=== PATIENT | female | born 1955 | race Caucasian/White ===

== ENCOUNTER 2025-02-03 11:27 | Outpatient (AMB) | payer MEDICARE, SELFPAY ==
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
[2025-02-03 11:29] VITALS: BP 138/66; PULSE 82; RESP 16; O2SAT 98; BMI 29.6
== END 2025-02-03 12:15 | disposition home or self-care (01) ==
LOC: HO.PMC 11:28
PROVIDERS: PCP Family Medicine; Visit Provider Nurse Practitioner Family
DX: M54.50 Low back pain, unspecified (principal); G89.29 Other chronic pain; M47.817 Spondylosis without myelopathy or radiculopathy, lumbosacral region; M51.369 Other intervertebral disc degeneration, lumbar region without mention of lumbar back pain or lower extremity pain; M62.830 Muscle spasm of back; M41.86 Other forms of scoliosis, lumbar region
CPT/HCPCS: 99204

== ENCOUNTER 2025-02-03 11:27 | Outpatient (REF) | payer MEDICARE, SELFPAY ==
--- NOTE | ~2025-02-03 | XR_ITS ---
EXAMINATION: XR LUMBOSACRAL SPINE CLINICAL INFORMATION: M54.50 - Low back pain, unspecified COMPARISON: None available. TECHNIQUE: AP, obliques and lateral views FINDINGS: Limited examination due to patient's body habitus. Levoconvex rotoscoliosis at the thoracolumbar spine. Multilevel marginal osteophyte formation and endplate sclerosis and decreased intervertebral disc height pronounced at L5-S1. No acute cortical disruption. No gross malalignment. No lytic or blastic lesions. Vascular clips right upper quadrant abdomen. XR/XR lumbar spine 6V w bending IMPRESSION: Multilevel thoracolumbar spondylosis and levoconvex rotoscoliosis. Status post cholecystectomy. Electronically signed by: Tre Addison MD 02/03/2025 01:35 PM VALERI
--- OUTSIDE RECORDS SUMMARY | 2025-02-04 01:09 | XMS_ITS | Encounter Summary ---
Author Organization [facility] Address [address] [facility] [employer] [place] [address] Phone Care Team Providers Care Satellite Installation Technician Name Role Phone Carri Knight MD Unavailable [phone] Saad Brewster MD Unavailable [email or web address] Regino Stringer MD Unavailable [phone] Regino Stringer MD Primary Care Provider + [phone] Erma Flores Primary Care Provider [phone] Regino Stringer MD Primary Care Provider + [phone] Reanna Goldsmith MD Primary Care Provider [phone] Encounter Details Date Type Department Care Team (Late st Contact Info) Description 06/26/2020 Ancillary Orders Virtual Department [address] [place] [address] Faith Abbott MD [address] [address] [email or web address] Calculus of kidney Social History Tobacco Use Types Packs/Day Years Used Date Smoking Tobacco: Former Smokeless Tobacco: Never Comments:high school Alcohol Use Standard Drinks/Week Comments Yes 0 (1 standard drink = 0.6 oz pur e alcohol) 1x a month Comments Unknown Sex and Gender Information Value Date Recorded Sex Assigned at Female 04/06/2020 2:45 PM EST Legal Sex Female 7:03 PM EST Gender Identity Female 04/06/2020 2:45 PM EST Sexual Orientation Straight 06/14/2020 2: 15 PM EDT documented as of this encounter Plan of Treatment Upcoming Encounters Date Type Department Care Team (Late st Contact Info) Description 08/07/2025 2:40 PM EDT Office Visit [facility] [address] [facility] 3rd Floor, [address] [place] [address] Buddy Patel MD [address] [facility] [place] [address] documented as of this encounter Results * US Bladder (06/26/2020 12:19 PM EDT) Anatomical Region Laterality Modality Abdomen, Kidney Ultrasound 06/26/2020 1:01 PM EDT Impressions 06/26/2020 1:04 PM EDT No bladder pathology is apparent. Very small post-void residual. POS [id number] Narrative 06/26/2020 1:04 PM EDT No comparison No bladder wall thickening or focal filling defects. Prevoid volume 327 cc. Post void volume about 7 cc. No bladder calculi. Bilateral ureteral jets are visible. Procedure Note Christopher Gordon MD - 06/26/2020 No comparison No bladder wall thickening or focal filling defects. Prevoid volume 327 cc. Post void volume about 7 cc. No bladder calculi. Bilateral ureteral jets are visible. IMPRESSION: No bladder pathology is apparent. Very small post-void residual. POS [id number] us Faith Abbott MD IMG US RENAL Final Resu lt documented in this encounter Visit Diagnoses Diagnosis Calculus of kidney Calculus of kidney documented in this encounter Care Teams Satellite Installation Technician Relationship Specialty Start Date End Date Regino Stringer MD [address] [place] [address] [email or web address] PCP - General Internal Medicine 06/03/19 11/19/20 Erma Flores PA [address] [address] PCP - General Unknown Provider Specialty 11/20/20 04/18/21 Regino Stringer MD [address] [place] [address] PCP - General Internal Medicine 04/19/21 08/04/21 Reanna Goldsmith MD [address] [place] [address] PCP - General Family Medicine 08/05/21 Carri Knight MD [address] [place] [address] Historical LMR Provider 01/02/17 2 Saad Brewster MD [email or web address] Historical LMR Provider 01/02/17 Regino Stringer MD [address] [place] [address] [email or web address] Historical LMR Provider 01/02/17 2 documented as of this encounter Additional Source Comments The information contained in this document represents components of the legal health record. It is not the complete legal health record.[facility]
--- OUTSIDE RECORDS SUMMARY | 2025-02-04 01:09 | XMS_ITS | Encounter Summary ---
Author Organization [facility] Address [address] [place] [address] Phone Care Team Providers Care Pediatric Nephrologist Name Role Phone Carri Knight MD Unavailable [phone] Saad Brewster MD Unavailable [email or web address] Regino Stringer MD Unavailable [phone] Regino Stringer MD Primary Care Provider + [phone] Erma Flores Primary Care Provider [phone] Regino Stringer MD Primary Care Provider + [phone] Reanna Goldsmith MD Primary Care Provider [phone] Encounter Details Date Type Department Care Team (Late st Contact Info) Description 06/09/2020 Procedure Pass [facility], Ct Scan - [address] [address] Social History Tobacco Use Types Packs/Day Years [...] Description 08/07/2025 2:40 PM EDT Office Visit [facility] [address] [place] [address] 3rd Floor, [address] [place] [address] Buddy Patel MD [address] [place] [address] documented as of this encounter Visit Diagnoses Not on filedocumented in this encounter Care Teams Pediatric Nephrologist Relationship Specialty Start Date End Date Regino Stringer MD [address] [place] [address] PCP - General Internal Medicine 06/03/19 11/19/20 Erma Flores PA [address] [place] [address] PCP - General Unknown Provider Specialty 11/20/20 04/18/21 Regino Stringer MD [address] [place] [address] PCP - General Internal Medicine 04/19/21 08/04/21 Reanna Goldsmith MD [address] [place] [address] PCP - General Family Medicine 08/05/21 Carri Knight MD [address] [place] [address] Historical LMR Provider 01/02/17 2 Saad Brewster MD [email or web address] Historical LMR Provider 01/02/17 Regino Stringer MD [address] [place] [address] [email or web address] Historical LMR Provider 01/02/17 2 documented as of this encounter Additional Source Comments The information contained in this document represents components of the legal health record. It is not the complete legal health record.[facility]
--- OUTSIDE RECORDS SUMMARY | 2025-02-04 01:10 | XMS_ITS | Encounter Summary ---
Author Organization [facility] Address [address] [place] [address] Phone Care Team Providers Care Radio Reporter Name Role Phone Carri Knight MD Unavailable [phone] Saad Brewster MD Unavailable [email or web address] Regino Stringer MD Unavailable [phone] Regino Stringer MD Primary Care Provider + [phone] Erma Flores Primary Care Provider [phone] Regino Stringer MD Primary Care Provider + [phone] Reanna Goldsmith MD Primary Care Provider [phone] Encounter Details Date Type Department Care Team (Late st Contact Info) Description 06/17/2020 Procedure Pass [address] [place] [address] Social History Tobacco Use Types Packs/Day Years [...] Description 08/07/2025 2:40 PM EDT Office Visit [facility] [address] [place] [address] 3rd Floor, [address] [place] [address] Buddy Patel MD 22 [facility], [address] [address] [email or web address] documented as of this encounter Visit Diagnoses Not on filedocumented in this encounter Care Teams Radio Reporter Relationship Specialty Start Date End Date Regino Stringer MD [address] [place] [address] PCP - General Internal Medicine 06/03/19 11/19/20 Erma Flores PA [address] [place] [address] PCP - General Unknown Provider Specialty 11/20/20 04/18/21 Regino Stringer MD [address] [place] [address] PCP - General Internal Medicine 04/19/21 08/04/21 Reanna Goldsmith MD [address] [place] [address] PCP - General Family Medicine 08/05/21 Carri Knight MD [address] [place] [address] Historical LMR Provider 01/02/17 2 Saad Brewster MD [email or web address] Historical LMR Provider 01/02/17 Regino Stringer MD [address] [place] [address] [email or web address] Historical LMR Provider 01/02/17 2 documented as of this encounter Additional Source Comments The information contained in this document represents components of the legal health record. It is not the complete legal health record.[facility]
--- OUTSIDE RECORDS SUMMARY | 2025-02-04 01:11 | XMS_ITS | Encounter Summary ---
Author Organization [facility] Address [address] [facility] [address] [place] [address] Phone Care Team Providers Care Media Marketing Manager Name Role Phone Carri Knight MD Unavailable [phone] Saad Brewster MD Unavailable [email or web address] Regino Stringer MD Unavailable [phone] Johanna Ferrer Primary Care Provider Regino Stringer MD Primary Care Provider + [phone] Erma Flores Primary Care Provider [phone] Regino Stringer MD Primary Care Provider + [phone] Erma Flores Primary Care Provider [phone] Regino Stringer MD Primary Care Provider + [phone] Reanna Goldsmith MD Primary Care Provider [phone] Encounter Details Date Type Department Care Team (Late st Contact Info) Description 03/23/2017 Procedure Pass [facility] Admitting Dept Virtual Department [address] [place] [address] Social History Tobacco Use Types Packs/Day Years [...] Description 08/07/2025 2:40 PM EDT Office Visit [facility] [address] [place] [address] [address]rd Floor, [address] [place] [address] Buddy Patel MD [address] [place] [address], [address] [address] [email or web address] documented as of this encounter Visit Diagnoses Not on filedocumented in this encounter Care Teams Media Marketing Manager Relationship Specialty Start Date End Date Johanna Ferrer PA [address] [place] [address] PCP - General Unknown Provider Specialty 02/13/17 07/23/17 Regino Stringer MD [address] [place] [address] PCP - General Internal Medicine 07/24/17 10/03/18 Erma Flores PA [address] [place] [address] PCP - General Unknown Provider Specialty 10/04/18 06/02/19 Regino Stringer MD [address] [place] [address] PCP - General Internal Medicine 06/03/19 11/19/20 Erma Flores PA [address] [place] [address] [place] [address] PCP - General Unknown Provider Specialty 11/20/20 04/18/21 Regino Stringer MD [address] [place] [address] [email or web address] PCP - General Internal Medicine 04/19/21 08/04/21 Reanna Goldsmith MD [address] [address] [email or web address] PCP - General Family Medicine 08/05/21 Carri Knight MD [address] [place] [address] Historical LMR Provider 01/02/17 2 Saad Brewster MD [email or web address] Historical LMR Provider 01/02/17 Regino Stringer MD [address] [place] [address] [email or web address] Historical LMR Provider 01/02/17 2 documented as of this encounter Additional Source Comments The information contained in this document represents components of the legal health record. It is not the complete legal health record.[facility]
--- OUTSIDE RECORDS SUMMARY | 2025-02-04 01:12 | XMS_ITS | Encounter Summary ---
Author Organization [facility] Address [address] [place] [address] Phone Care Team Providers Care Cane Piler Name Role Phone Carri Knight MD Unavailable [phone] Saad Brewster MD Unavailable [email or web address] Regino Stringer MD Unavailable [phone] Johanna Ferrer Primary Care Provider Regino Stringer MD Primary Care Provider +- [phone] Erma Flores Primary Care Provider [phone] Regino Stringer MD Primary Care Provider + [phone] Erma Flores Primary Care Provider [phone] Regino Stringer MD Primary Care Provider + [phone] Reanna Goldsmith MD Primary Care Provider [phone] Encounter Details Date Type Department Care Team (Late st Contact Info) Description 04/06/2017 Ancillary Orders Virtual Department 30 [place] [address] Johanna Ferrer PA [address] [place] [address] Acquired hypothyroidism; History of malignant neoplasm of thyroid; Status post thyroidectomy Social History Tobacco Use Types Packs/Day Years [...] Description 08/07/2025 2:40 PM EDT Office Visit [facility] [address] [place] [address] 3rd Floor, [address] [place], [place] [id number] Buddy Patel MD 22 [facility], [address] [phone] [email or web address] documented as of this encounter Results * US Thyroid Gland (05/11/2017 1:30 PM EST) Anatomical Region Laterality Modality Neck, Head, Chest Ultrasound 05/11/2017 3:27 PM EST Impressions 05/11/2017 6:32 PM EST No suspicious lymphadenopathy. POS - [id number] Edited by: Rica Green on 05/11/2017 3:34 PM Narrative 05/11/2017 6:32 PM EST HISTORY: History of thyroid malignancy. Status post thyroidectomy. Lymphadenopathy. COMPARISON: Multiple prior most recent 05/06/2016 FINDINGS: On the right, there are three lymph nodes identified. The largest measures 1.0 x 0.5 x 0.2 cm in the mid neck and has hypoechoic elongated appearance as before. The other two lymph nodes are a subcentimeter in size in all three axes. Just right of midline in the upper neck, there is a lymph node measuring a subcentimeter in size in all three axes which has a normal echogenic fatty hilum. On the left, three lymph nodes are identified. The largest measures 1.3 x 0.7 x 0.4 cm in the lower neck and has a normal echogenic fatty hilum. This has stable appearance. The other lymph nodes are a subcentimeter in size in all three axes. Procedure Note Fredrick Stearns MD - 05/11/2017 HISTORY: History of thyroid malignancy. Status post thyroidectomy.Lymphadenopathy. COMPARISON: Multiple prior most recent 05/06/2016 FINDINGS: On the right, there are three lymph nodes identified. The largestmeasures 1.0 x 0.5 x 0.2 cm in the mid neck and has hypoechoic elongatedappearance as before. The other two lymph nodes are a subcentimeter insize in all three axes. Just right of midline in the upper neck, there is a lymph node measuring asubcentimeter in size in all three axes which has a normal echogenic fattyhilum. On the left, three lymph nodes are identified. The largest measures 1.3 x0.7 x 0.4 cm in the lower neck and has a normal echogenic fatty hilum.This has stable appearance. The other lymph nodes are a subcentimeter insize in all three axes. IMPRESSION: No suspicious lymphadenopathy. POS - [id number] Edited by: Rica Green on 05/11/2017 3:34 PM us Johanna SALEEM IMG US THYROID Final Result documented in this encounter Visit Diagnoses Diagnosis Acquired hypothyroidism Unspecified hypothyroidism History of malignant neoplasm of thyroid Personal history of malignant neoplasm of thyroid Status post thyroidectomy Other postprocedural status Acquired hypothyroidism Unspecified hypothyroidism History of malignant neoplasm of thyroid Personal history of malignant neoplasm of thyroid Status post thyroidectomy Other postprocedural status documented in this encounter Care Teams Cane Piler Relationship Specialty Start Date End Date Johanna Ferrer PA [address] [place] [address] PCP - General Unknown Provider Specialty 02/13/17 07/23/17 Regino Stringer MD [address] [place] [address] [email or web address] PCP - General Internal Medicine 07/24/17 10/03/18 Erma Flores PA [address] [place] [address] PCP - General Unknown Provider Specialty 10/04/18 06/02/19 Regino Stringer MD [address] [place] [address] [email or web address] PCP - General Internal Medicine 06/03/19 11/19/20 Erma Flores PA [address] [place] [address] PCP - General Unknown Provider Specialty 11/20/20 04/18/21 Regino Stringer MD [address] [place] [address] [email or web address] PCP - General Internal Medicine 04/19/21 08/04/21 Reanna Goldsmith MD [address] [place] [address] [email or web address] PCP - General Family Medicine 08/05/21 Carri Knight MD [address] [place] [address] Historical LMR Provider 01/02/17 2 Saad Brewster MD [email or web address] Historical LMR Provider 01/02/17 Regino Stringer MD [address] [place] [address] [email or web address] Historical LMR Provider 01/02/17 2 documented as of this encounter Additional Source Comments The information contained in this document represents components of the legal health record. It is not the complete legal health record.[facility]
--- OUTSIDE RECORDS SUMMARY | 2025-02-04 01:12 | XMS_ITS | Encounter Summary ---
Author Organization [facility] Address [address] [place] [address] Phone Care Team Providers Care Electronic System Engineer Name Role Phone Carri Knight MD Unavailable [phone] Saad Brewster MD Unavailable [email or web address] Regino Stringer MD Unavailable [phone] Johanna Ferrer Primary Care Provider Regino Stringer MD Primary Care Provider +- [phone] Erma Flores Primary Care Provider [phone] Regino Stringer MD Primary Care Provider + [phone] Erma Flores Primary Care Provider [phone] Regino Stringer MD Primary Care Provider + [phone] Reanna Goldsmith MD Primary Care Provider [phone] Encounter Details Date Type Department Care Team (Latest Contact Info) Description 04/06/2017 Ancillary Orders Virtual Department 30 [place] [address] Johanna Ferrer PA [address] [place] [address] Acquired hypothyroidism Social History Tobacco Use Types Packs/Day Years [...] Description 08/07/2025 2:40 PM EDT Office Visit [facility] [address] [place] [address] 3rd Floor, [address] [place] [address] Buddy Patel MD [address] [place] [address], [address] [address] [email or web address] documented as of this encounter Visit Diagnoses Diagnosis Acquired hypothyroidism Unspecified hypothyroidism documented in this encounter Care Teams Electronic System Engineer Relationship Specialty Start Date End Date Johanna Ferrer PA [address] [place] [address] PCP - General Unknown Provider Specialty 02/13/17 07/23/17 Regino Stringer MD [address] [place] [address] PCP - General Internal Medicine 07/24/17 10/03/18 Erma Flores PA [address] [place] [address] PCP - General Unknown Provider Specialty 10/04/18 06/02/19 Regino Stringer MD [address] [place] [address] PCP - General Internal Medicine 06/03/19 11/19/20 Erma Flores PA [address] [address] PCP - General Unknown Provider Specialty 11/20/20 04/18/21 Regino Stringer MD [address] [place] [address] [email or web address] PCP - General Internal Medicine 04/19/21 08/04/21 Reanna Goldsmith MD [address] [place] [address] [email or web address] PCP - General Family Medicine 08/05/21 Carri Knight MD [address] [place] [address] Historical LMR Provider 01/02/17 2 Saad Brewster MD [email or web address] Historical LMR Provider 01/02/17 Regino Stringer MD [address] [place] [address] [email or web address] Historical LMR Provider 01/02/17 2 documented as of this encounter Additional Source Comments The information contained in this document represents components of the legal health record. It is not the complete legal health record.[facility]
--- OUTSIDE RECORDS SUMMARY | 2025-02-04 01:13 | XMS_ITS | Encounter Summary ---
Author Organization [facility] Address [address] [place] [address] Phone Care Team Providers Care Ceo And Co Founder Name Role Phone Carri Knight MD Unavailable [phone] Saad Brewster MD Unavailable [email or web address] Regino Stringer MD Unavailable [phone] Regino Stringer MD Primary Care Provider + [phone] Erma Flores Primary Care Provider [phone] Regino Stringer MD Primary Care Provider + [phone] Reanna Goldsmith MD Primary Care Provider [phone] Reason for Referral * MRI/CAT Scan - Closed Specialty Diagnoses / Procedures Referred By Delvis shane Referred To Contact Radiology Diagnoses Solitary pulmonary nodule Procedures CT Chest CHG DIAGNOSTIC COMPUTED TOMOGRAPHY THORAX W/O CNTRST CHG DIAGNOSTIC COMPUTED TOMOGRAPHY THORAX W/CONTRAST CHG DIAGNOSTIC COMPUTED TOMOGRAPHY THORAX C-/C+ Erma Flores PA Phone: tel: fax: [address] Phone: tel: Referral ID Status Reason Start Date Expiration Date Visits Re quested Visits Authorized [id number] Closed 08/18/2020 09/17/2020 1 1 Encounter Details Date Type Department Care Team (Latest Contact Info) Description 06/09/2020 Transcribe Orders Virtual Department 30 [place] [address] Erma Flores PA [address] [address] Solitary pulmonary nodule (Primary Dx) Social History Tobacco Use Types Packs/Day Years [...] Description 08/07/2025 2:40 PM EDT Office Visit [facility] [address] [place] [address] 3rd Floor, [address] [place] [address] Buddy Patel MD [address] [address] documented as of this encounter Results * CT CHEST WITHOUT CONTRAST (08/18/2020 12:27 PM EDT) Anatomical Region Laterality Modality Chest Computed Tomogra phy 08/18/2020 12:2 8 PM EDT Impressions 08/18/2020 12:37 PM EDT Stable presumed postinflammatory pulmonary nodules measuring up to 6 mm in the left lower lobe without acute pleural-parenchymal pathology or other significant interval change from 06/03/2019 suggested on this non-contrast study. TOTAL CTDIvol: mGy POS - [id number] Narrative 08/18/2020 12:37 PM EDT COMPARISON: 06/03/2019 CT TECHNIQUE: CT chest without IV contrast. Multiplanar reformatted images generated. Automated exposure control utilized. FINDINGS: The dominant 6 mm diameter left lower lobe pulmonary nodule is stable in size as are multiple smaller scattered nodules bilaterally. No new or enlarging nodules are detected. Scattered zones of parenchymal scarring bilaterally are unchanged and no acute airspace infiltrate or pleural effusion have developed. No uriah bronchiectasis. No endotracheal or mainstem endobronchial nodules identified. There is limited evaluation the pulmonary bayron due to the lack of intravenous contrast but no grossly enlarged superior mediastinal lymph nodes or significant pericardial effusion have developed. Aortic caliber stable. No discrete supraclavicular mass or axillary lymphadenopathy are detected. There is chronic scoliosis and degenerative disc changes in the midthoracic spine with development of a small Schmorl's node in the T6 body but no traumatic or destructive lesions identified. Heterogeneous hepatic parenchymal density consistent with large chronic hemangioma again seen, without evidence of adrenal enlargement or other significant change in the visualized upper abdominal visceral structures. Procedure Note Hakeem Vinson MD - 08/18/2020 COMPARISON: 06/03/2019 CT TECHNIQUE: CT chest without IV contrast. Multiplanar reformatted imagesgenerated. Automated exposure control utilized. FINDINGS: The dominant 6 mm diameter left lower lobe pulmonary nodule is stable insize as are multiple smaller scattered nodules bilaterally. No new orenlarging nodules are detected. Scattered zones of parenchymal scarringbilaterally are unchanged and no acute airspace infiltrate or pleuraleffusion have developed. No uriah bronchiectasis. No endotracheal ormainstem endobronchial nodules identified. There is limited evaluation the pulmonary bayron due to the lack ofintravenous contrast but no grossly enlarged superior mediastinal lymphnodes or significant pericardial effusion have developed. Aortic caliberstable. No discrete supraclavicular mass or axillary lymphadenopathy aredetected. There is chronic scoliosis and degenerative disc changes in themidthoracic spine with development of a small Schmorl's node in the T6body but no traumatic or destructive lesions identified. Heterogeneoushepatic parenchymal density consistent with large chronic hemangioma againseen, without evidence of adrenal enlargement or other significant changein the visualized upper abdominal visceral structures. IMPRESSION: Stable presumed postinflammatory pulmonary nodules measuring up to 6 mm inthe left lower lobe without acute pleural-parenchymal pathology or othersignificant interval change from 06/03/2019 suggested on this non-contraststudy. TOTAL CTDIvol: mGy POS - [id number] Erma SALEEM IMG CT CHEST Final Resul t documented in this encounter Visit Diagnoses Diagnosis Solitary pulmonary nodule- Primary Solitary pulmonary nodule documented in this encounter Care Teams Ceo And Co Founder Relationship Specialty Start Date End Date Regino Stringer MD [address] [place] [address] [email or web address] PCP - General Internal Medicine 06/03/19 11/19/20 Erma Flores PA [address] [place] [address] PCP - General Unknown Provider Specialty 11/20/20 04/18/21 Regino Stringer MD [address] [place] [address] [email or web address] PCP - General Internal Medicine 04/19/21 08/04/21 Reanna Goldsmiht MD [address] [place] [address] [email or web address] PCP - General Family Medicine 08/05/21 Carri Knight MD [address] [place] [address] Historical LMR Provider 01/02/17 2 Saad Brewster MD [email or web address] Historical LMR Provider 01/02/17 Regino Stringer MD [address] [place] [address] [email or web address] Historical LMR Provider 01/02/17 2 documented as of this encounter Additional Source Comments The information contained in this document represents components of the legal health record. It is not the complete legal health record.[facility]
--- OUTSIDE RECORDS SUMMARY | 2025-02-04 01:13 | XMS_ITS | Encounter Summary ---
Author Organization [facility] Address [address] [place] [address] Phone Care Team Providers Care Undercover Agent Name Role Phone Carri Knight MD Unavailable [phone] Saad Brewster MD Unavailable [email or web address] Regino Stringer MD Unavailable [phone] Regino Stringer MD Primary Care Provider +- [phone] Erma Flores Primary Care Provider [phone] Regino Stringer MD Primary Care Provider + [phone] Reanna Goldsmith MD Primary Care Provider [phone] Reason for Referral * MRI/CAT Scan - Closed Specialty Diagnoses / Procedures Referred By Delvis shane Referred To Contact Radiology Diagnoses Sacroiliitis, not elsewhere classified Procedures MRI Pelvis (Bone) MRI Pelvis (GI/) Arash Douglas DO Phone: tel: fax: [email or web address] Referral ID Status Reason Start Date Expiration Date Visits Re quested Visits Authorized [id number] Closed 11/19/2020 11/19/2021 1 1 Encounter Details Date Type Department Care Team (Latest Contact Info) Description 11/19/2020 Transcribe Orders Virtual Department 30 [place] [address] Arash Douglas, DO [address] [place] [address] [email or web address] Sacroiliitis, not elsewhere classified (Primary Dx) Social History Tobacco Use Types [...] Description 08/07/2025 2:40 PM EDT Office Visit [facility] [address] [place] [address] 3rd Floor, [address] [place] [address] Buddy Patel MD [address] [place] [address], [address] [address] [email or web address] documented as of this encounter Results * MRI PELVIS (BONY FOCUS) WITHOUT CONTRAST (12/02/2020 2:13 PM EDT) Anatomical Region Laterality Modality Pelvis Magnetic Resonan ce 12/02/2020 2:52 PM EDT Impressions 12/02/2020 3:01 PM EDT 1.No significant SI joint abnormalities. 2.1.2 cm mass in the anterior aspect of the uterus, likely a fibroid. Narrative 12/02/2020 3:01 PM EDT MRI PELVIS (BONY FOCUS) WITHOUT CONTRAST HISTORY: Pain, evaluate for sacroiliitis. TECHNIQUE: Multi-sequence, multi-planar MRI of the pelvis without intravenous contrast. COMPARISON: None. FINDINGS: Study of the SI joints performed. SI joints: No suspicious signal abnormalities. No evidence of erosions. No evidence of widening or narrowing of the SI joints. Other bones: No suspicious marrow signal abnormalities. Soft tissues: No evidence of soft tissue masses or focal fluid collections. Intrapelvic: 1.2 cm mass within the anterior aspect of the uterus, dark on the axial STIR sequence and very likely a fibroid. No evidence of other pelvic masses. No marked bowel distention. Evidence of diverticula in the sigmoid colon. Procedure Note Brady Wallace MD - 12/02/2020 MRI PELVIS (BONY FOCUS) WITHOUT CONTRAST HISTORY: Pain, evaluate for sacroiliitis. TECHNIQUE: Multi-sequence, multi-planar MRI of the pelvis withoutintravenous contrast. COMPARISON: None. FINDINGS: Study of the SI joints performed. SI joints: No suspicious signal abnormalities. No evidence of erosions. Noevidence of widening or narrowing of the SI joints. Other bones: No suspicious marrow signal abnormalities. Soft tissues: No evidence of soft tissue masses or focal fluidcollections. Intrapelvic: 1.2 cm mass within the anterior aspect of the uterus, dark onthe axial STIR sequence and very likely a fibroid. No evidence of otherpelvic masses. No marked bowel distention. Evidence of diverticula in thesigmoid colon. IMPRESSION: 1.No significant SI joint abnormalities. 2.1.2 cm mass in the anterior aspect of the uterus, likely a fibroid. Arash Douglas DO [facility] MR PELVIS Final Result documented in this encounter Visit Diagnoses Diagnosis Sacroiliitis, not elsewhere classified- Primary Sacroiliitis, not elsewhere classified documented in this encounter Care Teams Undercover Agent Relationship Specialty Start Date End Date Regino Stringer MD [address] [place] [address] PCP - General Internal Medicine 06/03/19 11/19/20 Erma Flores PA [address] [address] PCP - General Unknown Provider Specialty 11/20/20 04/18/21 Regino Stringer MD [address] [place] [address] [email or web address] PCP - General Internal Medicine 04/19/21 08/04/21 Reanna Goldsmith MD [address] [address] [email or web address] PCP - General Family Medicine 08/05/21 Carri Knight MD [address] [place] [address] Historical LMR Provider 01/02/17 2 Saad Brewster MD [email or web address] Historical LMR Provider 01/02/17 Regino Stringer MD [address] [place] [address] [email or web address] Historical LMR Provider 01/02/17 2 documented as of this encounter Additional Source Comments The information contained in this document represents components of the legal health record. It is not the complete legal health record.[facility]
--- OUTSIDE RECORDS SUMMARY | 2025-02-04 01:14 | XMS_ITS | Encounter Summary ---
Author Organization [facility] Address [address] [place] [address] Phone Care Team Providers Care Director Of Product Marketing Name Role Phone Carri Knight MD Unavailable [phone] Saad Brewster MD Unavailable [email or web address] Regino Stringer MD Unavailable [phone] Regino Stringer MD Primary Care Provider + [phone] Erma Flores Primary Care Provider [phone] Regino Stringer MD Primary Care Provider + [phone] Reanna Goldsmith MD Primary Care Provider [phone] Encounter Details Date Type Department Care Team (Late st Contact Info) Description 04/09/2020 Procedure Pass [facility] [place] [place] [address] Social History Tobacco Use Types Packs/Day Years [...] Description 08/07/2025 2:40 PM EDT Office Visit [facility] [address] [place] [address] 3rd Floor, [address] [place] [address] Buddy Patel MD [address] [place] [address] [email or web address] documented as of this encounter Visit Diagnoses Not on filedocumented in this encounter Care Teams Director Of Product Marketing Relationship Specialty Start Date End Date Regino Stringer MD [address] [place] [address] [email or web address] PCP - General Internal Medicine 06/03/19 11/19/20 Erma Flores PA [address] [place] [address] PCP - General Unknown Provider Specialty 11/20/20 04/18/21 Regino Stringer MD [address] [place] [address] [email or web address] PCP - General Internal Medicine 04/19/21 08/04/21 Reanna Goldsmith MD [address] [place] [address] PCP - General Family Medicine 08/05/21 Carri Knight MD [address] [place] [address] Historical LMR Provider 01/02/17 2 Saad Brewster MD [email or web address] Historical LMR Provider 01/02/17 Regino Stringer MD [address] [place], [place] [id number] [email or web address] Historical LMR Provider 01/02/17 2 documented as of this encounter Additional Source Comments The information contained in this document represents components of the legal health record. It is not the complete legal health record.[facility]
--- OUTSIDE RECORDS SUMMARY | 2025-02-04 01:14 | XMS_ITS | Encounter Summary ---
Author Organization [facility] Address [address] [place] [address] Phone Care Team Providers Care Grizzlyman Name Role Phone Carri Knight MD Unavailable [phone] Saad Brewster MD Unavailable [email or web address] Regino Stringer MD Unavailable [phone] Regino Stringer MD Primary Care Provider + [phone] Erma Flores Primary Care Provider [phone] Regino Stringer MD Primary Care Provider + [phone] Reanna Goldsmith MD Primary Care Provider [phone] Encounter Details Date Type Department Care Team (Latest Contact Info) Description 05/04/2020 Transcribe Orders Virtual Department 30 [place] [address] Faith Abbott MD [address] [place] [address] [email or web address] Calculus of kidney (Primary Dx); Hemangioma of other sites Social History Tobacco Use Types Packs/Day Years [...] Description 08/07/2025 2:40 PM EDT Office Visit [facility] [address]rd Floor, [address] [place] [address] Buddy Patel MD [address] [facility], [address] [place] [address] [email or web address] documented as of this encounter Results * US Abdomen Complete (06/26/2020 12:19 PM EDT) Anatomical Region Laterality Modality Abdomen Ultrasound 06/26/2020 12:5 3 PM EDT Impressions 06/26/2020 1:01 PM EDT 1. Grossly stable hepatic hemangiomata. 2. Stable or decreasing small hyperechoic cortical lesion in the lower pole of the left kidney, likely angiomyolipoma. 3. No new or acute upper abdominal pathology. POS [id number] Narrative 06/26/2020 1:01 PM EDT Compare 05/20/2013 ultrasound and 06/20/2018 CT. FINDINGS: Known large right hepatic hemangioma grossly unchanged measuring about 14.2 x 9.9 x 14.6 cm today. Smaller left lobe lesions also grossly stable 1.9 x 1.8 x 2.2 cm and 1.2 x 1.1 x 1.8 cm. No new liver lesions are identified Cholecystectomy. No biliary dilatation. CBD 4 mm Hepatopedal flow in the main portal vein. Unremarkable pancreas. 4 x 4 x 3 mm circumscribed, hyperechoic cortical lesion in the lower pole left kidney stable or smaller than 2013, clearly benign. No other renal masses on either side. No stones or hydronephrosis. No splenomegaly or masses. Visualized upper aorta and IVC are unremarkable. Procedure Note Christopher Gordon MD - 06/26/2020 Compare 05/20/2013 ultrasound and 06/20/2018 CT. FINDINGS: Known large right hepatic hemangioma grossly unchanged measuring about14.2 x 9.9 x 14.6 cm today. Smaller left lobe lesions also grossly stable 1.9 x 1.8 x 2.2 cm and 1.2 x1.1 x 1.8 cm. No new liver lesions are identified Cholecystectomy. No biliary dilatation. CBD 4 mm Hepatopedal flow in the main portal vein. Unremarkable pancreas. 4 x 4 x 3 mm circumscribed, hyperechoic cortical lesion in the lower poleleft kidney stable or smaller than 2014, clearly benign. No other renalmasses on either side. No stones or hydronephrosis. No splenomegaly or masses. Visualized upper aorta and IVC are unremarkable. IMPRESSION: 1. Grossly stable hepatic hemangiomata. 2. Stable or decreasing small hyperechoic cortical lesion in the lowerpole of the left kidney, likely angiomyolipoma. 3. No new or acute upper abdominal pathology. POS [id number] us Faith Abbott MD IMG US ABDOMEN Final Resu lt documented in this encounter Visit Diagnoses Diagnosis Calculus of kidney- Primary Hemangioma of other sites Hemangioma of other sites documented in this encounter Care Teams Grizzlyman Relationship Specialty Start Date End Date Regino Stringer MD [address] [place] [address] PCP - General Internal Medicine 06/03/19 11/19/20 Erma Flores PA [address] [place] [address] PCP - General Unknown Provider Specialty 11/20/20 04/18/21 Regino Stringer MD [address] [place] [address] [email or web address] PCP - General Internal Medicine 04/19/21 08/04/21 Reanna Goldsmith MD [address] [place] [address] PCP - General Family Medicine 08/05/21 Carri Knight MD [address] [place] [address] Historical LMR Provider 01/02/17 2 Saad Brewster MD [email or web address] Historical LMR Provider 01/02/17 Regino Stringer MD [address] [place] [address] [email or web address] Historical LMR Provider 01/02/17 2 documented as of this encounter Additional Source Comments The information contained in this document represents components of the legal health record. It is not the complete legal health record.[facility]
--- OUTSIDE RECORDS SUMMARY | 2025-02-04 01:15 | XMS_ITS | Encounter Summary ---
Author Organization [facility] Address [address] [place] [address] Phone Care Team Providers Care Restuarant Crew Worker Name Role Phone Carri Knight MD Unavailable [phone] Saad Brewster MD Unavailable [email or web address] Regino Stringer MD Unavailable [phone] Regino Stringer MD Primary Care Provider [phone] Erma Flores Primary Care Provider [phone] Regino Stringer MD Primary Care Provider + [phone] Reanna Goldsmith MD Primary Care Provider [phone] Encounter Details Date Type Department Care Team (Late st Contact Info) Description 06/03/2019 Ancillary Orders Virtual Department 30 [place] [address] Steven Serrano MD [address] [place] [address] Personal history of malignant neoplasm of thyroid Social History Tobacco Use Types Packs/Day Years [...] Description 08/07/2025 2:40 PM EDT Office Visit [facility] [address] [place] [address] 3rd Floor, [address] [place] [address] Buddy Patel MD [address] [facility], [address] [place] [address] [email or web address] documented as of this encounter Results * US Soft Tissues of Head and Neck (Lymph Node Survey) (06/03/2019 1:26 PM EDT) Anatomical Region Laterality Modality Neck, Head Ultrasound 06/03/2019 1:47 PM EDT Impressions 06/03/2019 2:08 PM EDT Bilateral subcentimeter cervical lymph nodes with no morphologically abnormal-appearing lymph nodes seen. POS: [id number] Narrative 06/03/2019 2:08 PM EDT US SOFT TISSUES OF HEAD AND NECK (LYMPH NODE SURVEY) CLINICAL INDICATION: HISTORY OF MALIGNANT NEOPLASM OF THYROID, ASSESS FOR CONCERNING ADENOPATHY, H/O THYROID CANCER TECHNIQUE: Grayscale imaging of the neck for evaluation of lymph nodes was performed. COMPARISON: Similar studies dated 05/11/2017, 05/06/2016, 05/09/2014 and 04/04/2013. FINDINGS: On the right, 2 lymph nodes are identified, the largest is located medially in the mid neck measuring 0.8 x 0.2 x 0.9 cm. On the left, 3 lymph nodes are noted, the largest of which is located superiorly measuring 0.9 x 0.4 x 0.7 cm. This demonstrates preserved echogenic hilum. The thyroid bed was not demonstrated. Procedure Note Mary Quiroz MD - 06/03/2019 US SOFT TISSUES OF HEAD AND NECK (LYMPH NODE SURVEY) CLINICAL INDICATION: HISTORY OF MALIGNANT NEOPLASM OF THYROID, ASSESS FORCONCERNING ADENOPATHY, H/O THYROID CANCER TECHNIQUE: Grayscale imaging of the neck for evaluation of lymph nodes wasperformed. COMPARISON: Similar studies dated 05/11/2017, 05/06/2016, 05/09/2014 and04/04/2013. FINDINGS: On the right, 2 lymph nodes are identified, the largest is locatedmedially in the mid neck measuring 0.8 x 0.2 x 0.9 cm. On the left, 3 lymph nodes are noted, the largest of which is locatedsuperiorly measuring 0.9 x 0.4 x 0.7 cm. This demonstrates preservedechogenic hilum. The thyroid bed was not demonstrated. IMPRESSION: Bilateral subcentimeter cervical lymph nodes with no morphologicallyabnormal-appearing lymph nodes seen. POS: [id number] us Steven Serrano MD IMG US HEAD/NECK NON THYROI D Final Result documented in this encounter Visit Diagnoses Diagnosis Personal history of malignant neoplasm of thyroid Personal history of malignant neoplasm of thyroid documented in this encounter Care Teams Restuarant Crew Worker Relationship Specialty Start Date End Date Regino Stringer MD [address] [place] [address] PCP - General Internal Medicine 06/03/19 11/19/20 Erma Flores PA [address] [place] [address] PCP - General Unknown Provider Specialty 11/20/20 04/18/21 Regino Stringer MD [address] [place] [address] PCP - General Internal Medicine 04/19/21 08/04/21 Reanna Goldsmith MD [address] [place] [address] [email or web address] PCP - General Family Medicine 08/05/21 Carri Knight MD [address] [place] [address] Historical LMR Provider 01/02/17 2 Saad Brewster MD [email or web address] Historical LMR Provider 01/02/17 Regino Stringer MD [address] [place] [address] [email or web address] Historical LMR Provider 01/02/17 2 documented as of this encounter Additional Source Comments The information contained in this document represents components of the legal health record. It is not the complete legal health record.[facility]
--- OUTSIDE RECORDS SUMMARY | 2025-02-04 01:16 | XMS_ITS | Encounter Summary ---
Author Organization [facility] Address [address] [facility] [address] [place] [address] Phone Care Team Providers Care Drywall Carrier Name Role Phone Carri Knight MD Unavailable [phone] Saad Brewster MD Unavailable [email or web address] Regino Stringer MD Unavailable [phone] Erma Flores Primary Care Provider [phone] Regino Stringer MD Primary Care Provider + [phone] Erma Flores Primary Care Provider [phone] Regino Stringer MD Primary Care Provider + [phone] Reanna Goldsmith MD Primary Care Provider [phone] Encounter Details Date Type Department Care Team (Latest Contact Info) Description 04/23/2019 Transcribe Orders Virtual Department 30 [place] [address] Steven Serrano MD [address] [place] [address] [email or web address] Personal history of malignant neoplasm of thyroid (Primary Dx) Social History Tobacco Use Types [...] Description 08/07/2025 2:40 PM EDT Office Visit [facility] [address] [place] [address] 3rd Floor, [address] [place] [address] Buddy Patel MD [address] [place] [address], [address] [address] [email or web address] documented as of this encounter Visit Diagnoses Diagnosis Personal history of malignant neoplasm of thyroid- Primary documented in this encounter Care Teams Drywall Carrier Relationship Specialty Start Date End Date Erma Flores PA [address] [place] [address] PCP - General Unknown Provider Specialty 10/04/18 06/02/19 Regino Stringer MD [address] [place] [address] PCP - General Internal Medicine 06/03/19 11/19/20 Erma Flores PA [address] [place] [address] PCP - General Unknown Provider Specialty 11/20/20 04/18/21 Regino Stringer MD [address] [place] [address] PCP - General Internal Medicine 04/19/21 08/04/21 Reanna Goldsmith MD [address] [place] [address] [email or web address] PCP - General Family Medicine 08/05/21 Carri Knight MD [address] [place] [address] Historical LMR Provider 01/02/17 2 Saad Brewster MD [email or web address] Historical LMR Provider 01/02/17 eRgino Stringer MD [address] [place] [address] [email or web address] Historical LMR Provider 01/02/17 2 documented as of this encounter Additional Source Comments The information contained in this document represents components of the legal health record. It is not the complete legal health record.[facility]
--- OUTSIDE RECORDS SUMMARY | 2025-02-04 01:16 | XMS_ITS | Encounter Summary ---
Author Organization [facility] Address [address] [place] [address] Phone Care Team Providers Care Mysql Database Developer Name Role Phone Carri Knight MD Unavailable [phone] Saad Brewster MD Unavailable [email or web address] Regino Stringer MD Unavailable [phone] Erma Flores Primary Care Provider [phone] Regino Stringer MD Primary Care Provider + [phone] Erma Flores Primary Care Provider [phone] Regino Stringer MD Primary Care Provider + [phone] Reanna Goldsmith MD Primary Care Provider [phone] Reason for Referral * MRI/CAT Scan - Closed Specialty Diagnoses / Procedures Referred By Delvis shane Referred To Contact Radiology Diagnoses Other nonspecific abnormal finding of lung field Procedures CT Chest Erma Flores PA Phone: tel: fax: [address] Phone: tel: Referral ID Status Reason Start Date Expiration Date Visits Re quested Visits Authorized [id number] Closed 06/03/2019 07/03/2019 1 1 Encounter Details Date Type Department Care Team (Latest Contact Info) Description 04/10/2019 Transcribe Orders Virtual Department [address] [place] [address] Erma Flores PA [address] [address] Other nonspecific abnormal finding of lung field (Primary Dx) Social History Tobacco Use Types [...] Description 08/07/2025 2:40 PM EDT Office Visit [facility] [address] [place] [address] 3rd Floor, [address] [place] [address] Buddy Patel MD [address] [facility], [address] [address] documented as of this encounter Results * CT CHEST WITHOUT CONTRAST (06/03/2019 1:25 PM EDT) Anatomical Region Laterality Modality Chest Computed Tomogra phy 06/03/2019 1:59 PM EDT Impressions 06/03/2019 2:20 PM EDT 1. Bilateral pulmonary nodules, all which are stable compared with 09/25/[address] The largest nodule measures 6 mm in average diameter in the LEFT lower lobe. Recommend additional follow-up CT chest in 6 months. TOTAL CTDIvol: 5.10 mGy POS - [id number] Narrative 06/03/2019 2:20 PM EDT EXAM: CT CHEST WITHOUT CONTRAST HISTORY: MULTIPLE NODULES OF LUNG, F/U MULTIPLE PULMONARY NODULES, PLEASE COMPARE TO IMAGE FROM 09/25/18 TECHNIQUE: CT imaging of the CHEST without IV contrast. Helical axial images obtained with coronal and sagittal images reconstructed. Radiation dose control: Exam performed with automated exposure control or iterative reconstruction to minimize radiation exposure. COMPARISON: 09/25/[address] Lower chest images from 06/20/2018 CT abdomen pelvis. FINDINGS: LUNGS/AIRWAYS: Several areas of breathing motion artifact in the lungs. Round noncalcified LEFT lower lobe nodule appears to be without significant change compared with 09/25/2018 and 06/20/2018, measuring 6 mm and average axial diameter. There is some breathing motion artifact at the level of the measured pulmonary nodule, slightly limiting exact measurement. Other scattered bilateral pulmonary nodules, all measuring less than 5 mm, are without significant change compared with 09/25/[address] Linear bands of scarring in the paramediastinal RIGHT upper and middle lobes and at the lung bases remain stable. No acute pulmonary consolidation. The trachea and main bronchi are normal. PLEURAL: No pleural effusion. CARDIOVASCULAR: Normal size of the unenhanced heart. No pericardial effusion. Normal diameter of the unenhanced thoracic aorta. Minimal LAD and circumflex coronary artery calcifications. MEDIASTINUM/SHOAIB: No adenopathy or mass. CHEST WALL/THORACIC INLET/LOWER NECK: No adenopathy or mass. Post thyroidectomy with clips in the thyroid bed. BONES: Stable scoliotic curvature and degenerative endplate changes in the thoracic spine. No acute fracture. No suspicious bone lesion. RIGHT humeral head surgical anchors from prior rotator cuff surgery. Stable shoulder arthritic changes. UPPER ABDOMEN: Surgical clips in the gallbladder fossa. Large inhomogeneous mass in the RIGHT hepatic lobe, shown on previous contrast-enhanced abdominal imaging to represent a large hemangioma. Current study performed without IV contrast. The adrenal glands are normal. Procedure Note Allyson Basilio MD - 06/03/2019 EXAM: CT CHEST WITHOUT CONTRAST HISTORY: MULTIPLE NODULES OF LUNG, F/U MULTIPLE PULMONARY NODULES, PLEASECOMPARE TO IMAGE FROM 09/25/18 TECHNIQUE: CT imaging of the CHEST without IV contrast. Helical axialimages obtained with coronal and sagittal images reconstructed. Radiation dose control: Exam performed with automated exposure control oriterative reconstruction to minimize radiation exposure. COMPARISON: 09/25/[address] Lower chest images from 06/20/2018 CTabdomen pelvis. FINDINGS: LUNGS/AIRWAYS: Several areas of breathing motion artifact in the lungs.Round noncalcified LEFT lower lobe nodule appears to be withoutsignificant change compared with 09/25/2018 and 06/20/2018, measuring 6 mmand average axial diameter. There is some breathing motion artifact at thelevel of the measured pulmonary nodule, slightly limiting exactmeasurement. Other scattered bilateral pulmonary nodules, all measuringless than 5 mm, are without significant change compared with 09/25/2018chest CT. Linear bands of scarring in the paramediastinal RIGHT upper andmiddle lobes and at the lung bases remain stable. No acute pulmonaryconsolidation. The trachea and main bronchi are normal. PLEURAL: No pleural effusion. CARDIOVASCULAR: Normal size of the unenhanced heart. No pericardialeffusion. Normal diameter of the unenhanced thoracic aorta. Minimal LADand circumflex coronary artery calcifications. MEDIASTINUM/SHOAIB: No adenopathy or mass. CHEST WALL/THORACIC INLET/LOWER NECK: No adenopathy or mass. Postthyroidectomy with clips in the thyroid bed. BONES: Stable scoliotic curvature and degenerative endplate changes in thethoracic spine. No acute fracture. No suspicious bone lesion. RIGHThumeral head surgical anchors from prior rotator cuff surgery. Stableshoulder arthritic changes. UPPER ABDOMEN: Surgical clips in the gallbladder fossa. Largeinhomogeneous mass in the RIGHT hepatic lobe, shown on previouscontrast-enhanced abdominal imaging to represent a large hemangioma.Current study performed without IV contrast. The adrenal glands arenormal. IMPRESSION: 1. Bilateral pulmonary nodules, all which are stable compared with09/25/[address] The largest nodule measures 6 mm in average diameterin the LEFT lower lobe. Recommend additional follow-up CT chest in 6months. TOTAL CTDIvol: 5.10 mGy POS - [id number] Erma SALEEM IMG CT CHEST Final Resul t documented in this encounter Visit Diagnoses Diagnosis Other nonspecific abnormal finding of lung field- Primary Other nonspecific abnormal finding of lung field documented in this encounter Care Teams Mysql Database Developer Relationship Specialty Start Date End Date Erma Flores PA [address] [address] PCP - General Unknown Provider Specialty 10/04/18 06/02/19 Regino Stringer MD [address] [place] [address] [email or web address] PCP - General Internal Medicine 06/03/19 11/19/20 Erma Flores PA [address] [address] PCP - General Unknown Provider Specialty 11/20/20 04/18/21 Regino Stringer MD [address] [place] [address] [email or web address] PCP - General Internal Medicine 04/19/21 08/04/21 Reanna Goldsmith MD [address] [place] [address] [email or web address] PCP - General Family Medicine 08/05/21 Carri Knight MD [address] [place] [address] Historical LMR Provider 01/02/17 2 Saad Brewster MD [email or web address] Historical LMR Provider 01/02/17 Regino Stringer MD [address] [place] [address] Historical LMR Provider 01/02/17 2 documented as of this encounter Additional Source Comments The information contained in this document represents components of the legal health record. It is not the complete legal health record.[facility]
--- OUTSIDE RECORDS SUMMARY | 2025-02-04 01:17 | XMS_ITS | Encounter Summary ---
Author Organization [facility] Address [address] [place] [address] Phone Care Team Providers Care Stna Name Role Phone Carri Knight MD Unavailable [phone] Saad Brewster MD Unavailable [email or web address] Regino Stringer MD Unavailable [phone] Erma Flores Primary Care Provider [phone] Regino Stringer MD Primary Care Provider + [phone] Erma Flores Primary Care Provider [phone] Regino Stringer MD Primary Care Provider + [phone] Reanna Goldsmith MD Primary Care Provider [phone] Encounter Details Date Type Department Care Team (Latest Contact Info) Description 04/17/2019 Transcribe Orders Virtual Department 30 [place] [address] Maricruz Parker, PA-C [address] [facility] [address] [place] [address] [email or web address] Calculus of kidney (Primary Dx) Social History Tobacco Use Types [...] Description 08/07/2025 2:40 PM EDT Office Visit [facility] [address] [place] [address] [address]rd Floor, [address] [place] [address] Buddy Patel MD [address] [place] [address], [address] [address] [email or web address] documented as of this encounter Visit Diagnoses Diagnosis Calculus of kidney- Primary documented in this encounter Care Teams Stna Relationship Specialty Start Date End Date Erma Flores PA [address] [place] [address] PCP - General Unknown Provider Specialty 10/04/18 06/02/19 Regino Stringer MD [address] [place] [address] PCP - General Internal Medicine 06/03/19 11/19/20 Erma Flores PA [address] [place] [address] PCP - General Unknown Provider Specialty 11/20/20 04/18/21 Regino Stringer MD [address] [place] [address] PCP - General Internal Medicine 04/19/21 08/04/21 Reanna Goldsmith MD [address] [place] [address] [email or web address] PCP - General Family Medicine 08/05/21 Carri Knight MD [address] [place] [address] Historical LMR Provider 01/02/17 2 Saad Brewster MD [email or web address] Historical LMR Provider 01/02/17 Regino Stringer MD [address] [place] [address] [email or web address] Historical LMR Provider 01/02/17 2 documented as of this encounter Additional Source Comments The information contained in this document represents components of the legal health record. It is not the complete legal health record.[facility]
--- OUTSIDE RECORDS SUMMARY | 2025-02-04 01:18 | XMS_ITS | Encounter Summary ---
Author Organization [facility] Address [address] [employer] [address] [place] [address] Phone Care Team Providers Care Buckram Sewer Name Role Phone Carri Knight MD Unavailable [phone] Saad Brewster MD Unavailable [email or web address] Regino Stringer MD Unavailable [phone] Erma Flores Primary Care Provider [phone] Regino Stringer MD Primary Care Provider + [phone] Erma Flores Primary Care Provider [phone] Regino Stringer MD Primary Care Provider + [phone] Reanna Goldsmith MD Primary Care Provider [phone] Encounter Details Date Type Department Care Team (Late st Contact Info) Description 04/23/2019 Transcribe Orders Virtual Department [address] [place] [address] Steven Serrano MD [address] [place] [address] [email or web address] Social History Tobacco Use Types Packs/Day Years [...] Description 08/07/2025 2:40 PM EDT Office Visit [facility] [address] [place] [address] [address]rd Floor, [address] [place] [address] Buddy Patel MD [address] [place] [address], [address] [address] documented as of this encounter Visit Diagnoses Not on filedocumented in this encounter Care Teams Buckram Sewer Relationship Specialty Start Date End Date Erma Flores PA [address] [place] [address] PCP - General Unknown Provider Specialty 10/04/18 06/02/19 Regino Stringer MD [address] [place] [address] PCP - General Internal Medicine 06/03/19 11/19/20 Erma Flores PA [address] [place] [address] PCP - General Unknown Provider Specialty 11/20/20 04/18/21 Regino Stringer MD [address] [place] [address] PCP - General Internal Medicine 04/19/21 08/04/21 Reanna Goldsmith MD [address] [place] [address] [email or web address] PCP - General Family Medicine 08/05/21 Carri Knight MD [address] [place] [address] Historical LMR Provider 01/02/17 2 Saad Brewster MD [email or web address] Historical LMR Provider 01/02/17 Regino Stringer MD [address] [place] [address] [email or web address] Historical LMR Provider 01/02/17 2 documented as of this encounter Additional Source Comments The information contained in this document represents components of the legal health record. It is not the complete legal health record.[facility]
--- OUTSIDE RECORDS SUMMARY | 2025-02-04 01:19 | XMS_ITS | Encounter Summary ---
Author Organization [facility] Address [address] [place] [address] Phone Care Team Providers Care Service Delivery Consultant Name Role Phone Saad Brewster MD Unavailable [email or web address] Reanna Goldsmith MD Primary Care Provider [phone] Encounter Details Date Type Department Care Team (Late st Contact Info) Description 08/31/2022 Ancillary Orders Virtual Department [address] [place] [address] Steven Serrano MD [address] [place] [address] [email or web address] Personal history of malignant neoplasm of thyroid Social History Tobacco Use Types Packs/Day Years Used Date Smoking Tobacco: Former Smokeless Tobacco: Never Comments:high school Alcohol Use Standard Drinks/Week Comments Yes 0 (1 standard drink = 0.6 oz pur e alcohol) occasionally Education Answer Date Recorded Are you interested in more education? Not on robert e 08/01/2022 Are you concerned about learning? Not on file 08/01/2022 No 08/01/2022 No 08/01/2022 Digital Access Answer Date Recorded No 08/12/2022 No 08/12/2022 Reliable internet access at home? Not on file 08/12/2022 Device with a working camera? Not on file Comments Unknown Sex and Gender Information Value [...] Description 08/07/2025 2:40 PM EDT Office Visit [facility] [address] [facility] [address] 3rd Floor, [address] [place] [address] Buddy Patel MD [address] [facility], [address] [place] [address] [email or web address] documented as of this encounter Results * US Soft Tissues of Head and Neck (Lymph Node Survey) (08/31/2022 2:04 PM EDT) Anatomical Region Laterality Modality Neck, Head Ultrasound 09/05/2022 12:4 8 PM EDT Impressions 09/05/2022 3:23 PM EDT No suspicious cervical lymph nodes. Narrative 09/05/2022 3:23 PM EDT US SOFT TISSUES OF HEAD AND NECK (LYMPH NODE SURVEY) HISTORY: Status post thyroidectomy for thyroid malignancy, evaluate for lymphadenopathy. TECHNIQUE: Ultrasound soft tissue of the head and neck. COMPARISON: Neck ultrasound 06/03/2019. FINDINGS: Right side of neck: A total of 5 scattered lymph nodes are demonstrated within the neck. These all measure less than 10 mm. None have suspicious morphology. Left side of neck: A total of 7 scattered lymph nodes are demonstrated within the neck the largest is located in the submandibular region (level 2) and measures 11 mm x 7 mm x 4 mm. There is a prominent fatty hilum. No suspicious morphology. A submental lymph node measures 11 mm x 3 mm x 3 mm and has a prominent fatty hilum. All other lymph nodes measure less than 10 mm. Procedure Note Brady Wallace MD - 09/05/2022 US SOFT TISSUES OF HEAD AND NECK (LYMPH NODE SURVEY) HISTORY: Status post thyroidectomy for thyroid malignancy, evaluate forlymphadenopathy. TECHNIQUE: Ultrasound soft tissue of the head and neck. COMPARISON: Neck ultrasound 06/03/2019. FINDINGS: Right side of neck: A total of 5 scattered lymph nodes are demonstratedwithin the neck. These all measure less than 10 mm. None have suspiciousmorphology. Left side of neck: A total of 7 scattered lymph nodes are demonstratedwithin the neck the largest is located in the submandibular region (level2) and measures 11 mm x 7 mm x 4 mm. There is a prominent fatty hilum. Nosuspicious morphology. A submental lymph node measures 11 mm x 3 mm x 3 mmand has a prominent fatty hilum. All other lymph nodes measure less than10 mm. IMPRESSION: No suspicious cervical lymph nodes. us Steven Serrano MD IMG US HEAD/NECK NON THYROI D Final Result documented in this encounter Visit Diagnoses Diagnosis Personal history of malignant neoplasm of thyroid Personal history of malignant neoplasm of thyroid documented in this encounter Care Teams Service Delivery Consultant Relationship Specialty Start Date End Date Reanna Goldsmith MD [email or web address] PCP - General Family Medicine 08/05/21 Saad Brewster MD [email or web address] Historical LMR Provider 01/02/17 documented as of this encounter Additional Source Comments The information contained in this document represents components of the legal health record. It is not the complete legal health record.[facility]
--- OUTSIDE RECORDS SUMMARY | 2025-02-04 01:19 | XMS_ITS | Encounter Summary ---
Author Organization [facility] Address [address] [place] [address] Phone Care Team Providers Care Supervisor Display Fabrication Name Role Phone Carri Knight MD Unavailable [phone] Saad Brewster MD Unavailable [email or web address] Regino Stringer MD Unavailable [phone] Regino Stringer MD Primary Care Provider + [phone] Erma Flores Primary Care Provider [phone] Regino Stringer MD Primary Care Provider + [phone] Erma Flores Primary Care Provider [phone] Regino Stringer MD Primary Care Provider + [phone] Reanna Goldsmith MD Primary Care Provider [phone] Reason for Referral * MRI/CAT Scan - Closed Specialty Diagnoses / Procedures Referred By Delvis shane Referred To Contact Radiology Diagnoses Benign neoplasm of kidney, unspecified laterality Procedures CT Abdomen Only (No Pelvis) CT Abdomen/Pelvis Maricruz Parker PA-C Phone: tel: fax: mailto: Referral ID Status Reason Start Date Expiration Date Visits Re quested Visits Authorized [id number] Closed 06/08/2018 08/06/2018 1 1 Encounter Details Date Type Department Care Team (Latest Contact Info) Description 06/08/2018 Transcribe Orders [facility] Department [address] [place] [address] Maricruz Parker PA-C [address] [place] [address], [place] [address] [email or web address] Benign neoplasm of kidney, unspecified laterality (Primary Dx) Social History Tobacco Use Types [...] Description 08/07/2025 2:40 PM EDT Office Visit [facility] [address] [place] [address] 3rd Floor, [address] [place] [address] Buddy Patel MD [address] [place] [address], [address] [place] [address] [email or web address] documented as of this encounter Results * CT ABDOMEN WITH AND WITHOUT CONTRAST (06/20/2018 3:14 PM EDT) Anatomical Region Laterality Modality Abdomen, Abdominal Vasculature C omputed Tomography 06/20/2018 3:20 PM EDT Impressions 06/20/2018 3:41 PM EDT 1. 3 mm left lower renal pole too small to characterize hypodensity which may correspond to the echogenic mass on the ultrasound. Sonographic surveillance in 6-12 months is recommended. 2. 6 mm left lower lobe pulmonary nodule. A follow-up chest CT is recommended. 3. 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 4. Additional findings as outlined. TOTAL CTDIvol: 22.3 mGy POS - [id number] Narrative 06/20/2018 3:41 PM EDT COMPARISON:Renal ultrasound 05/23/2018. Abdominal ultrasound 05/20/2013. MRI abdomen 07/05/2011. TECHNIQUE: CT abdomen per renal mass protocol was performed. Oral contrast was administered. Precontrast views are obtained from the kidneys through the inferior pubic rami. Intravenous contrast is then administered and scanning obtained at ninety seconds from the dome of the liver to the iliac crests. Multiplanar reformatted images obtained. Automated exposure control utilized. CT ABDOMEN FINDINGS: Lungs/heart: Imaged heart is normal. Lingular scarring versus atelectasis. 6 x 5 mm left lower lobe nodule. Spleen: Normal. Liver: Stable mild hepatomegaly and large heterogeneous enhancing right hepatic lobe mass representing a giant cavernous hemangioma measuring up to at least 13 cm. Mild increase in size of the two smaller hemangiomas within the left hepatic lobes measuring up to 2.5 and 2.6 cm. Increase in size of too small to characterize hypodensities in the inferior medial right hepatic lobe which may represent incidental cysts or hemangiomas as well. Gallbladder/biliary tree: Cholecystectomy. No pathologic biliary dilatation. Pancreas: Normal. Adrenal glands: Normal. Vasculature: Normal. Genitourinary: Punctate non-obstructing right lower pole calculus and 2 mm non-obstructing left lower renal pole calculus. No hydronephrosis. Normal renal enhancement. There is a 3 mm hypodensity in the anterior left lower renal pole noted on the nephrographic enhanced phase only which may potentially correspond to the echogenic mass on ultrasound. Gastrointestinal tract: Normal. Peritoneum/retroperitoneum: No lymphadenopathy, ascites or fluid collections. There are a few migrated cholecystectomy clips in the anterior right mid abdomen. Musculoskeletal: Large habitus. Small umbilical and epigastric fat-containing ventral hernias. Moderate thoracolumbar scoliosis and severe L5-S1 two disc disease. No compression fractures or destructive bone lesions. Procedure Note Carolina Chinchilla MD - 06/20/2018 COMPARISON:Renal ultrasound 05/23/2018. Abdominal ultrasound 05/20/2013.MRI abdomen 07/05/2011. TECHNIQUE: CT abdomen per renal mass protocol was performed. Oralcontrast was administered. Precontrast views are obtained from thekidneys through the inferior pubic rami. Intravenous contrast is thenadministered and scanning obtained at ninety seconds from the dome of theliver to the iliac crests. Multiplanar reformatted images obtained.Automated exposure control utilized. CT ABDOMEN FINDINGS: Lungs/heart: Imaged heart is normal. Lingular scarring versusatelectasis. 6 x 5 mm left lower lobe nodule. Spleen: Normal. Liver: Stable mild hepatomegaly and large heterogeneous enhancing righthepatic lobe mass representing a giant cavernous hemangioma measuring upto at least 13 cm. Mild increase in size of the two smaller hemangiomaswithin the left hepatic lobes measuring up to 2.5 and 2.6 cm. Increase insize of too small to characterize hypodensities in the inferior medialright hepatic lobe which may represent incidental cysts or hemangiomas aswell. Gallbladder/biliary tree: Cholecystectomy. No pathologic biliarydilatation. Pancreas: Normal. Adrenal glands: Normal. Vasculature: Normal. Genitourinary: Punctate non-obstructing right lower pole calculus and 2 mmnon-obstructing left lower renal pole calculus. No hydronephrosis.Normal renal enhancement. There is a 3 mm hypodensity in the anteriorleft lower renal pole noted on the nephrographic enhanced phase only whichmay potentially correspond to the echogenic mass on ultrasound. Gastrointestinal tract: Normal. Peritoneum/retroperitoneum: No lymphadenopathy, ascites or fluidcollections. There are a few migrated cholecystectomy clips in theanterior right mid abdomen. Musculoskeletal: Large habitus. Small umbilical and epigastricfat-containing ventral hernias. Moderate thoracolumbar scoliosis andsevere L5-S1 two disc disease. No compression fractures or destructivebone lesions. IMPRESSION: 1. 3 mm left lower renal pole too small to characterize hypodensity whichmay correspond to the echogenic mass on the ultrasound. Sonographicsurveillance in 6-12 months is recommended. 2. 6 mm left lower lobe pulmonary nodule. A follow-up chest CT isrecommended. 3. Chronic right hepatic lobe giant cavernous hemangioma and smallerhepatic hemangiomas as described. 4. Additional findings as outlined. TOTAL CTDIvol: 22.3 mGy POS - [id number] Maricruz Parker PA-C IMG CT XSPECIALTY ORDERABLES F inal Result documented in this encounter Visit Diagnoses Diagnosis Benign neoplasm of kidney, unspecified laterality- Primary Benign neoplasm of kidney, unspecified laterality documented in this encounter Care Teams Supervisor Display Fabrication Relationship Specialty Start Date End Date Regino Stringer MD [address] [place] [address] [email or web address] PCP - General Internal Medicine 07/24/17 10/03/18 Erma Flores PA [address] [place] [address] PCP - General Unknown Provider Specialty 10/04/18 06/02/19 Regino Stringer MD [address] [place] [address] PCP - General Internal Medicine 06/03/19 11/19/20 Erma Flores PA [address] [place] [address] PCP - General Unknown Provider Specialty 11/20/20 04/18/21 Regino Stringer MD [address] [place] [address] PCP - General Internal Medicine 04/19/21 08/04/21 Reanna Goldsmith MD [address] [place] [address] [email or web address] PCP - General Family Medicine 08/05/21 Carri Knight MD [address] [place] [address] Historical LMR Provider 01/02/17 2 Saad Brewster MD [email or web address] Historical LMR Provider 01/02/17 Regino Stringer MD [address] [place] [address] [email or web address] Historical LMR Provider 01/02/17 2 documented as of this encounter Additional Source Comments The information contained in this document represents components of the legal health record. It is not the complete legal health record.[facility]
--- OUTSIDE RECORDS SUMMARY | 2025-02-04 01:20 | XMS_ITS | Encounter Summary ---
Author Organization [facility] Address [address] [place] [address] Phone Care Team Providers Care Landscape Painter Name Role Phone Saad Brewster MD Unavailable [email or web address] Reanna Goldsmith MD Primary Care Provider [phone] Encounter Details Date Type Department Care Team (Late st Contact Info) Description 06/03/2022 Procedure [facility], Ct Scan - [address] [address] Social History Tobacco Use Types Packs/Day Years Used Date Smoking Tobacco: Former Smokeless Tobacco: Never Comments:high school Alcohol Use Standard Drinks/Week Comments Yes 0 (1 standard drink = 0.6 oz pur e alcohol) occasionally Comments Unknown Sex and Gender Information Value [...] Description 08/07/2025 2:40 PM EDT Office Visit [facility] [address] [place] [address] 3rd Floor, [address] [place] [address] Buddy Patel MD [address], [address] [place], [place] [phone] [email or web address] documented as of this encounter Visit Diagnoses Not on filedocumented in this encounter Care Teams Landscape Painter Relationship Specialty Start Date End Date Reanna Goldsmith MD [email or web address] PCP - General Family Medicine 08/05/21 Saad Brewster MD [email or web address] Historical LMR Provider 01/02/17 documented as of this encounter Additional Source Comments The information contained in this document represents components of the legal health record. It is not the complete legal health record.[facility]
--- OUTSIDE RECORDS SUMMARY | 2025-02-04 01:21 | XMS_ITS | Encounter Summary ---
Author Organization [facility] Address [address] [place] [address] Phone Care Team Providers Care House Mover Name Role Phone Carri Knight MD Unavailable [phone] Saad Brewster MD Unavailable [email or web address] Regino Stringer MD Unavailable [phone] Regino Stringer MD Primary Care Provider + [phone] Erma Flores Primary Care Provider [phone] Regino Stringer MD Primary Care Provider + [phone] Erma Flores Primary Care Provider [phone] Regino Stringer MD Primary Care Provider + [phone] Reanna Goldsmith MD Primary Care Provider [phone] Encounter Details Date Type Department Care Team (Latest Contact Info) Description 06/15/2018 Transcribe Orders [address] [place] [address] Faith Abbott MD [address] [place] [address] [email or web address] Benign neoplasm of kidney, unspecified laterality (Primary [...] Description 08/07/2025 2:40 PM EDT Office Visit [facility] [address] [place] [address] 3rd Floor, [address] [place], [place] [phone] Buddy Patel MD [address] [facility], [address] [place], [place] [phone] [email or web address] documented as of this encounter Results * Creatinine/eGFR (06/15/2018 3:29 PM EDT) CREATININE 0.70 0.5 - 1.5 mg/dL [facility] EGFR 92 >59 mL/min/1.7 3m2 [facility] Comment:If patient is black, multiply result by 1.159. Estimated glomerular filtration rate calculated using the CKD-EPI equation. Blood 06/15/2018 3:29 PM EDT 06/15/2018 3:30 PM EDT Faith Abbott MD LAB BLOOD BKR ORDERABLES F inal Result [facility] [address] [place] [address] * BUN (06/15/2018 3:29 PM EDT) BUN 12 6 - 19 mg/dL [facility] Blood 06/15/2018 3:29 PM EDT 06/15/2018 3:30 PM EDT Faith Abbott MD LAB BLOOD BKR ORDERABLES F inal Result [address] [address] documented in this encounter Visit Diagnoses Diagnosis Benign neoplasm of kidney, unspecified laterality- Primary documented in this encounter Care Teams House Mover Relationship Specialty Start Date End Date Regino Stringer MD [address] [place] [address] PCP - General Internal Medicine 07/24/17 10/03/18 Erma Flores PA [address] [place] [address] PCP - General Unknown Provider Specialty 10/04/18 06/02/19 Regino Stringer MD [address] [place] [address] PCP - General Internal Medicine 06/03/19 11/19/20 Erma Flores PA [address] [place] [address] PCP - General Unknown Provider Specialty 11/20/20 04/18/21 Regino Stringer MD [address] [place] [address] PCP - General Internal Medicine 04/19/21 08/04/21 Reanna Goldsmith MD [address] [place] [address] PCP - General Family Medicine 08/05/21 Carri Knight MD [address] [place] [address] Historical LMR Provider 01/02/17 2 Saad Brewster MD [email or web address] Historical LMR Provider 01/02/17 Regino Stringer MD [address] [place] [address] [email or web address] Historical LMR Provider 01/02/17 2 documented as of this encounter Additional Source Comments The information contained in this document represents components of the legal health record. It is not the complete legal health record.[facility]
--- OUTSIDE RECORDS SUMMARY | 2025-02-04 01:21 | XMS_ITS | Encounter Summary ---
Author Organization [facility] Address [address] [facility] [address] [place] [address] Phone Care Team Providers Care Overedge Sewer Name Role Phone Carri Knight MD Unavailable [phone] Saad Brewster MD Unavailable [email or web address] Regino Stringer MD Unavailable [phone] Regino Stringer MD Primary Care Provider + [phone] Erma Flores Primary Care Provider [phone] Regino Stringer MD Primary Care Provider + [phone] Erma Flores Primary Care Provider [phone] Regino Stringer MD Primary Care Provider + [phone] Reanna Goldsmith MD Primary Care Provider + [phone] Encounter Details Date Type Department Care Team (Late st Contact Info) Description 05/18/2018 Ancillary Orders Virtual Department [address] [place] [address] Maricruz Parker PA-C [facility], [address] [place], [place] [id number] [email or web address] Gross hematuria Social History Tobacco Use Types Packs/Day Years [...] Description 08/07/2025 2:40 PM EDT Office Visit [facility] [address] [place] [address] 3rd Floor, [address] [place] [address] Buddy Patel MD [address] [facility], [address] [place], [place] [id number] [email or web address] documented as of this encounter Results * US Kidneys and Bladder (05/23/2018 12:37 PM EST) Anatomical Region Laterality Modality Abdomen, Kidney Ultrasound 05/23/2018 12:4 2 PM EST Impressions 05/23/2018 12:52 PM EST 1. Small postvoid bladder residual. No hydronephrosis no nephrolithiasis. 2. 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 Either follow-up short-term renal ultrasound in six months or limited CT of the kidneys is recommended. 3. Mild interval enlargement of the chronic giant right hepatic lobe cavernous hemangioma POS [id number] Narrative 05/23/2018 12:52 PM EST COMPARISON: Abdominal ultrasound 05/20/2013. MRI abdomen 07/05/2011. RENAL AND BLADDER ULTRASOUND FINDINGS: Bladder: Prevoid volume is 406 cc. Postvoid volume is 14 cc of 3%. Ureteral jets are visualized. No bladder wall thickening, masses or calculi. Kidneys: Right kidney measures 10 x 4 cm. Left kidney measures 10 x 4 cm. No hydronephrosis or calculi. There is a new avascular hypoechoic area in the left lower renal pole measuring 6 x 4 x 4 mm Cortical echogenicity and thickness are normal. No perinephric fluid collections. Additional findings: Again noted is a chronic large heterogeneous hypoechoic relatively avascular mass in the right hepatic lobe measuring up to 15.5 x 15.5 x 11 cm compared to 14.8 x 15.3 x 12.1 cm. Procedure Note Carolina Chinchilla MD - 05/23/2018 COMPARISON: Abdominal ultrasound 05/20/2013. MRI abdomen 07/05/2011. RENAL AND BLADDER ULTRASOUND FINDINGS: Bladder: Prevoid volume is 406 cc. Postvoid volume is 14 cc of 3%.Ureteral jets are visualized. No bladder wall thickening, masses orcalculi. Kidneys: Right kidney measures 10 x 4 cm. Left kidney measures 10 x 4cm. No hydronephrosis or calculi. There is a new avascular hypoechoicarea in the left lower renal pole measuring 6 x 4 x 4 mm Corticalechogenicity and thickness are normal. No perinephric fluidcollections. Additional findings: Again noted is a chronic large heterogeneoushypoechoic relatively avascular mass in the right hepatic lobe measuringup to 15.5 x 15.5 x 11 cm compared to 14.8 x 15.3 x 12.1 cm. IMPRESSION: 1. Small postvoid bladder residual. No hydronephrosis nonephrolithiasis. 2. New 6 mm left lower renal pole echogenic mass most likely representingan incidental benign angiomyolipoma. Either follow-up short-term renalultrasound in six months or limited CT of the kidneys is recommended. 3. Mild interval enlargement of the chronic giant right hepatic lobecavernous hemangioma POS [id number] us Maricruz Parker PA-C IMG US RENAL Final Result documented in this encounter Visit Diagnoses Diagnosis Gross hematuria Gross hematuria documented in this encounter Care Teams Overedge Sewer Relationship Specialty Start Date End Date Regino Stringer MD [address] [place] [address] [email or web address] PCP - General Internal Medicine 07/24/17 10/03/18 Erma Flores PA [address] [place] [address] PCP - General Unknown Provider Specialty 10/04/18 06/02/19 Regino Stringer MD [address] [place] [address] [email or web address] PCP - General Internal Medicine 06/03/19 11/19/20 Erma Flores PA [address] [place] [address] PCP - General Unknown Provider Specialty 11/20/20 04/18/21 Regino Stringer MD [address] [place] [address] [email or web address] PCP - General Internal Medicine 04/19/21 08/04/21 Reanna Goldsmith MD [address] [place] [address] [email or web address] PCP - General Family Medicine 08/05/21 Carri Knight MD [address] [place] [address] Historical LMR Provider 01/02/17 2 Saad Brewster MD [email or web address] Historical LMR Provider 01/02/17 Regino Stringer MD [address] [place] [address] [email or web address] Historical LMR Provider 01/02/17 2 documented as of this encounter Additional Source Comments The information contained in this document represents components of the legal health record. It is not the complete legal health record.[facility]
--- OUTSIDE RECORDS SUMMARY | 2025-02-04 01:22 | XMS_ITS | Encounter Summary ---
Author Organization [facility] Address [address] [facility] [place] [address] Phone Care Team Providers Care Reconstructive Surgeon Name Role Phone Saad Brewster MD Unavailable [email or web address] Reanna Goldsmith MD Primary Care Provider [phone] Reason for Referral * MRI/CAT Scan - Closed Specialty Diagnoses / Procedures Referred By Delvis shane Referred To Contact Radiology Diagnoses Solitary pulmonary nodule Procedures CT Chest Reanna Goldsmith MD Phone: tel: fax: [email or web address] Referral ID Status Reason Start Date Expiration Date Visits Re quested Visits Authorized [id number] Closed 06/03/2022 06/03/2023 1 1 Encounter Details Date Type Department Care Team (Late st Contact Info) Description 06/03/2022 Transcribe Orders Virtual Department 30 [place] [address] Reanna Goldsmith MD [address] [place] [address] [email or web address] Solitary pulmonary nodule (Primary Dx) Social History [...] 08/07/2025 2:40 PM EDT Office Visit [facility] [address] [place] [address] 3rd Floor, [address] [place] [address] Buddy Patel MD [address] [facility], [address] [place], [place] [id number] [email or web address] documented as of this encounter Results * CT CHEST WITHOUT CONTRAST (09/28/2022 12:31 PM EDT) Anatomical Region Laterality Modality Chest Computed Tomogra phy 09/30/2022 6:09 AM EDT Impressions 09/30/2022 6:53 PM EDT Stable 6 cm left lower lobe pulmonary nodule which is most likely benign given low density, and may reflect a pulmonary hamartoma. Additional sub-5 mm nodules are also stable, and most likely benign. Narrative 09/30/2022 6:[address] CHEST WITHOUT CONTRAST TECHNIQUE: Multidetector CT of the chest was performed without intravenous contrast using tailored dose modulation. COMPARISON: Chest CT 08/18/2020. FINDINGS: Devices/Tubes/Lines: None. Lungs: Central airways are patent. No consolidation. Stable 6 mm left lower lobe nodule on 5:217, which appears hypodense, though not definitively fat density. Stable additional sub-5 mm nodules, for example a 4 mm right major fissural nodule on 5:115, and 5 mm right apical nodular focus on 5:61 Pleura: Normal. No pleural effusion or pneumothorax. Mediastinum: Prior prior thyroidectomy. Mild coronary artery calcifications. Aortic calcification. Cardiac chambers are normal in size. Trace pericardial fluid. Lymph Nodes: Normal. No enlarged supraclavicular, axillary, mediastinal, or hilar lymph nodes. Upper Abdomen: Partially imaged upper abdomen demonstrates a heterogeneous mass replacing the right liver, similar to prior, consistent with known hemangioma characterize previously; there is slightly more hypodensity interposed between segment 7 and the diaphragm on 4:131, likely trace perihepatic fluid. Chest Wall: Normal. No chest wall mass. Bones: Spinal degenerative changes with similar dextroconvex curvature centered in the mid thoracic spine. Benign T6 vertebral hemangioma. Procedure Note Ha Davis MD - 09/30/2022 CT CHEST WITHOUT CONTRAST TECHNIQUE: Multidetector CT of the chest was performed without intravenouscontrast using tailored dose modulation. COMPARISON: Chest CT 08/18/2020. FINDINGS: Devices/Tubes/Lines: None. Lungs: Central airways are patent. No consolidation. Stable 6 mm leftlower lobe nodule on 5:217, which appears hypodense, though notdefinitively fat density. Stable additional sub-5 mm nodules, for examplea 4 mm right major fissural nodule on 5:115, and 5 mm right apical nodularfocus on 5:61 Pleura: Normal. No pleural effusion or pneumothorax. Mediastinum: Prior prior thyroidectomy. Mild coronary arterycalcifications. Aortic calcification. Cardiac chambers are normal in size.Trace pericardial fluid. Lymph Nodes: Normal. No enlarged supraclavicular, axillary, mediastinal,or hilar lymph nodes. Upper Abdomen: Partially imaged upper abdomen demonstrates a heterogeneousmass replacing the right liver, similar to prior, consistent with knownhemangioma characterize previously; there is slightly more hypodensityinterposed between segment 7 and the diaphragm on 4:131, likely traceperihepatic fluid. Chest Wall: Normal. No chest wall mass. Bones: Spinal degenerative changes with similar dextroconvex curvaturecentered in the mid thoracic spine. Benign T6 vertebral hemangioma. IMPRESSION: Stable 6 cm left lower lobe pulmonary nodule which is most likely benigngiven low density, and may reflect a pulmonary hamartoma. Additional sub-5mm nodules are also stable, and most likely benign. Reanna Goldsmith MD IMG CT CHEST Final Result documented in this encounter Visit Diagnoses Diagnosis Solitary pulmonary nodule- Primary Solitary pulmonary nodule documented in this encounter Care Teams Reconstructive Surgeon Relationship Specialty Start Date End Date Reanna Goldsmith MD [email or web address] PCP - General Family Medicine 08/05/21 Saad Brewster MD [email or web address] Historical LMR Provider 01/02/17 documented as of this encounter Additional Source Comments The information contained in this document represents components of the legal health record. It is not the complete legal health record.[facility]
--- OUTSIDE RECORDS SUMMARY | 2025-02-04 01:23 | XMS_ITS | Encounter Summary ---
Author Organization [facility] Address [address] [facility] [address] [address] [place] [address] Phone Care Team Providers Care Vocational Rehab Consultant Name Role Phone Carri Knight MD Unavailable [phone] Saad Brewster MD Unavailable [email or web address] Regino Stringer MD Unavailable [phone] Regino Stringer MD Primary Care Provider + [phone] Erma Flores Primary Care Provider [phone] Regino Stringer MD Primary Care Provider + [phone] Erma Flores Primary Care Provider [phone] Regino Stringer MD Primary Care Provider + [phone] Reanna Goldsmith MD Primary Care Provider [phone] Encounter Details Date Type Department Care Team (Late st Contact Info) Description 01/19/2018 Procedure Pass [facility] Endoscopy Admitting Dept Virtual Department [address] [place] [address] Social History Tobacco Use Types [...] Description 08/07/2025 2:40 PM EDT Office Visit [facility] [address] [place] [address] 3rd Floor, [address] [place] [address] Buddy Patel MD [address] [facility], [address] [address] documented as of this encounter Visit Diagnoses Not on filedocumented in this encounter Care Teams Vocational Rehab Consultant Relationship Specialty Start Date End Date Regino Stringer MD [address] [place] [address] PCP - General Internal Medicine 07/24/17 10/03/18 Erma Flores PA [address] [place] [address] PCP - General Unknown Provider Specialty 10/04/18 06/02/19 Regino Stringer MD [address] [place] [address] PCP - General Internal Medicine 06/03/19 11/19/20 Erma Flores PA [address] [place] [address] PCP - General Unknown Provider Specialty 11/20/20 04/18/21 Regino Stringer MD [address] [place] [address] [email or web address] PCP - General Internal Medicine 04/19/21 08/04/21 Reanna Goldsmith MD [address] [place] [address] PCP - General Family Medicine 08/05/21 Carri Knight MD [address] [place] [address] Historical LMR Provider 01/02/17 2 Saad Brewster MD [email or web address] Historical LMR Provider 01/02/17 Regino Stringer MD [address] [place] [address] [email or web address] Historical LMR Provider 01/02/17 2 documented as of this encounter Additional Source Comments The information contained in this document represents components of the legal health record. It is not the complete legal health record.[facility]
--- OUTSIDE RECORDS SUMMARY | 2025-02-04 01:23 | XMS_ITS | Encounter Summary ---
Author Organization [facility] Address [address] [place] [address] Phone Care Team Providers Care Checker In Name Role Phone Saad Brewster MD Unavailable [email or web address] Reanna Goldsmith MD Primary Care Provider [phone] Encounter Details Date Type Department Care Team (Latest Contact Info) Description 08/11/2022 Transcribe Orders Virtual Department [address] [place] [address] Steven Serrano MD [address] [place] [address] [email or web address] Personal history of malignant neoplasm of [...] Description 08/07/2025 2:40 PM EDT Office Visit [facility] [address] [place] [address] 3rd Floor, [address] [place] [address] Buddy Patel MD [address] [facility], [address] [place] [address] [email or web address] documented as of this encounter Visit Diagnoses Diagnosis Personal history of malignant neoplasm of thyroid- Primary documented in this encounter Care Teams Checker In Relationship Specialty Start Date End Date Reanna Goldsmith MD [email or web address] PCP - General Family Medicine 08/05/21 Saad Brewster MD [email or web address] Historical LMR Provider 01/02/17 documented as of this encounter Additional Source Comments The information contained in this document represents components of the legal health record. It is not the complete legal health record.[facility]
--- OUTSIDE RECORDS SUMMARY | 2025-02-04 01:24 | XMS_ITS | Encounter Summary ---
Author Organization [facility] Address [address] [facility] [facility] [address] [place] [address] Phone Care Team Providers Care Varnishing Unit Operator Name Role Phone Saad Brewster MD Unavailable [email or web address] Reanna Goldsmith MD Primary Care Provider [phone] Encounter Details Date Type Department Care Team (Late st Contact Info) Description 02/16/2022 Procedure Pass Non-Invasive Cardiology [address] [place] [address] [place] [address] Social History Tobacco Use Types Packs/Day Years [...] Description 08/07/2025 2:40 PM EDT Office Visit [facility] [address] 3rd Floor, [address] [place] [address] Buddy Patel MD [address] [facility], [address] [place] [address] [email or web address] documented as of this encounter Visit Diagnoses Not on filedocumented in this encounter Care Teams Varnishing Unit Operator Relationship Specialty Start Date End Date Reanna Goldsmith MD [email or web address] PCP - General Family Medicine 08/05/21 Saad Brewster MD [email or web address] Historical LMR Provider 01/02/17 documented as of this encounter Additional Source Comments The information contained in this document represents components of the legal health record. It is not the complete legal health record.[facility]
--- OUTSIDE RECORDS SUMMARY | 2025-02-04 01:25 | XMS_ITS | Encounter Summary ---
Author Organization [facility] Address [address] [facility] [address] [place] [address] Phone Care Team Providers Care Bi Application Developer Name Role Phone Saad Brewster MD Unavailable [email or web address] Reanna Goldsmith MD Primary Care Provider [phone] Encounter Details Date Type Department Care Team (Late st Contact Info) Description 02/16/2022 Procedure Pass [facility] Echo Lab [address] [place] [address] Social History Tobacco Use Types Packs/Day Years [...] Description 08/07/2025 2:40 PM EDT Office Visit [facility] [address] [place] [address] 3rd Floor, [address] [place] [address] Buddy Patel MD [address] [facility], [address] [place] [address] [email or web address] documented as of this encounter Visit Diagnoses Not on filedocumented in this encounter Care Teams Bi Application Developer Relationship Specialty Start Date End Date Reanna Goldsmith MD [email or web address] PCP - General Family Medicine 08/05/21 Saad Brewster MD [email or web address] Historical LMR Provider 01/02/17 documented as of this encounter Additional Source Comments The information contained in this document represents components of the legal health record. It is not the complete legal health record.[facility]
--- OUTSIDE RECORDS SUMMARY | 2025-02-04 01:26 | XMS_ITS | Encounter Summary ---
Author Organization [facility] Address [address] [facility] [address] [place] [address] Phone Care Team Providers Care Perioperative Educator Name Role Phone Carri Knight MD Unavailable [phone] Saad Brewster MD Unavailable [email or web address] Regino Stringer MD Unavailable [phone] Regino Stringer MD Primary Care Provider + [phone] Erma Flores Primary Care Provider [phone] Regino Stringer MD Primary Care Provider + [phone] Erma Flores Primary Care Provider [phone] Regino Stringer MD Primary Care Provider + [phone] Reanna Goldsmith MD Primary Care Provider [phone] Encounter Details Date Type Department Care Team (Latest Contact Info) Description 12/07/2017 Transcribe Orders [facility] Phleb [facility] [address] 2nd [place] [address] Hakeem Ortiz MD [address] [address] [email or web address] Rectal bleed (Primary Dx); Change in bowel habits Social History Tobacco Use Types Packs/Day Years [...] Description 08/07/2025 2:40 PM EDT Office Visit [facility] [address] [place] [address] 3rd Floor, [address] [place] [address] Buddy Patel MD [address] [facility], [address] [place] [address] [email or web address] documented as of this encounter Results * CBC (12/07/2017 11:30 AM EDT) WBC 5.92 3.40 - 11.20 K/uL [facility] RBC 4.42 3.80 - 4.80 M/uL [facility] HGB 13.4 12.0 - 15.0 g/dL [facility] HCT 40.3 36.0 - 46.0 % [facility] PLT 265 130 - 400 K/uL [facility] MCV 91.2 79.0 - 98.0 fL [facility] MCH 30.3 27.0 - 34.8 pg [facility] MCHC 33.3 31.5 - 36.0 g/dL [facility] RDW 12.9 10.8 - 14.6 % [facility] MPV 10.9 9.4 - 12.4 fl [facility] NRBC 0.00 /100 WBCs [facility] ABSOLUTE NRBC 0.00 K/uL [facility] Blood 12/07/2017 11:3 0 AM EDT 12/07/2017 11:36 AM EDT us Hakeem Ortiz MD LAB BLOOD BKR ORDERABLES Final Result [address] [address] documented in this encounter Visit Diagnoses Diagnosis Rectal bleed- Primary Hemorrhage of rectum and anus Change in bowel habits Other symptoms involving digestive system documented in this encounter Care Teams Perioperative Educator Relationship Specialty Start Date End Date Regino Stringer MD [address] [place] [address] PCP - General Internal Medicine 07/24/17 10/03/18 Erma Flores PA [address] [place] [address] PCP - General Unknown Provider Specialty 10/04/18 06/02/19 Regino Stringer MD [address] [place] [address] PCP - General Internal Medicine 06/03/19 11/19/20 Erma Flores PA [address] [place] [address] PCP - General Unknown Provider Specialty 11/20/20 04/18/21 Regino Stringer MD [address] [place] [address] PCP - General Internal Medicine 04/19/21 08/04/21 Reanna Goldsmith MD [address] [place] [address] PCP - General Family Medicine 08/05/21 Carri Knight MD [address] [place] [address] Historical LMR Provider 01/02/17 2 Saad Brewster MD [email or web address] Historical LMR Provider 01/02/17 Regino Stringer MD [address] [place] [address] [email or web address] Historical LMR Provider 01/02/17 2 documented as of this encounter Additional Source Comments The information contained in this document represents components of the legal health record. It is not the complete legal health record.[facility]
--- OUTSIDE RECORDS SUMMARY | 2025-02-04 01:26 | XMS_ITS | Encounter Summary ---
Author Organization [facility] Address [address] [place] [address] Phone Care Team Providers Care Director Data Management Name Role Phone Saad Brewster MD Unavailable [email or web address] Erma Flores Primary Care Provider Regino Stringer MD Primary Care Provider [phone] Reanna Goldsmith MD Primary Care Provider [phone] Encounter Details Date Type Department Care Team (Late Contact Info) Description 04/15/2021 Procedure Pass [facility] Endoscopy Admitting Dept Virtual Department [address] [place], [place] [id number] Social History Tobacco Use Types Packs/Day Years [...] Encounters Date Type Department Care Team (Late Contact Info) Description 08/07/2025 2:40 PM EDT Office Visit [facility] [address] [place] [address] 3rd Floor, [address] [place] [address] Buddy Patel MD 22 [facility], [facility] [address] [place] [address] [email or web address] documented as of this encounter Visit Diagnoses Not on filedocumented in this encounter Care Teams Director Data Management Relationship Specialty Start Date End Date Erma Flores PA [address] [place] [address] PCP - General Unknown Provider Specialty 11/20/20 04/18/21 Regino Stringer MD [address] [place] [address] [email or web address] PCP - General Internal Medicine 04/19/21 08/04/21 Reanna Goldsmith MD [address] [place] [address] PCP - General Family Medicine 08/05/21 Saad Brewster MD [email or web address] Historical LMR Provider 01/02/17 documented as of this encounter Additional Source Comments The information contained in this document represents components of the legal health record. It is not the complete legal health record.[facility]
--- OUTSIDE RECORDS SUMMARY | 2025-02-04 01:27 | XMS_ITS | Encounter Summary ---
Author Organization [facility] Address [address] [facility] [place] [address] Phone Care Team Providers Care Forest Practices Field Coordinator Name Role Phone Carri Knight MD Unavailable [phone] Saad Brewster MD Unavailable [email or web address] Regino Stringer MD Unavailable [phone] Johanna Ferrer Primary Care Provider Regino Stringer MD Primary Care Provider + [phone] Erma Flores Primary Care Provider [phone] Regino Stringer MD Primary Care Provider + [phone] Erma Flores Primary Care Provider [phone] Regino Stringer MD Primary Care Provider + [phone] Reanna Goldsmith MD Primary Care Provider [phone] Encounter Details Date Type Department Care Team (Latest Contact Info) Description 05/11/2017 Transcribe Orders [facility] Phleb Main [address] [place] [address] Johanna Ferrer PA [address] [place] [address] Acquired hypothyroidism (Primary Dx) Social History Tobacco Use Types [...] Description 08/07/2025 2:40 PM EDT Office Visit [facility] [address] [place] [address] 3rd Floor, [address] [place] [address] Buddy Patel MD [address] [place] [address] [email or web address] documented as of this encounter Results * TSH with reflex (05/11/2017 1:29 PM EST) TSH 1.12 0.27 - 4.20 uIU/mL [facility] Blood 05/11/2017 1:29 PM EST 05/11/2017 1:31 PM EST us Johanna SALEEM LAB BLOOD BKR ORDERABL ES Final Result Performing Organization Address City/State/[facility] Co de Phone Number [facility] [address] [place] [address] documented in this encounter Visit Diagnoses Diagnosis Acquired hypothyroidism- Primary Unspecified hypothyroidism documented in this encounter Care Teams Forest Practices Field Coordinator Relationship Specialty Start Date End Date Johanna Ferrer PA [address] [place] [address] PCP - General Unknown Provider Specialty 02/13/17 07/23/17 Regino Stringer MD [address] [place] [address] [email or web address] PCP - General Internal Medicine 07/24/17 10/03/18 Erma Flores PA [address] [place] [address] PCP - General Unknown Provider Specialty 10/04/18 06/02/19 Regino Stringer MD [address] [place] [address] [email or web address] PCP - General Internal Medicine 06/03/19 11/19/20 Erma Flores PA [address] [place] [address] PCP - General Unknown Provider Specialty 11/20/20 04/18/21 Regino Stringer MD [address] [place] [address] [email or web address] PCP - General Internal Medicine 04/19/21 08/04/21 Reanna Goldsmith MD [address] [place] [address] [email or web address] PCP - General Family Medicine 08/05/21 Carri Knight MD [address] [place] [address] Historical LMR Provider 01/02/17 2 Saad Brewster MD [email or web address] Historical LMR Provider 01/02/17 Regino Stringer MD [address] [place] [address] [email or web address] Historical LMR Provider 01/02/17 2 documented as of this encounter Additional Source Comments The information contained in this document represents components of the legal health record. It is not the complete legal health record.[facility]
--- OUTSIDE RECORDS SUMMARY | 2025-02-04 01:27 | XMS_ITS | Encounter Summary ---
Author Organization [facility] Address [address] [place] [address] Phone Care Team Providers Care Rotoformer Backtender Name Role Phone Saad Brewster MD Unavailable [email or web address] Reanna Goldsmith MD Primary Care Provider [phone] Encounter Details Date Type Department Care Team (Late st Contact Info) Description 09/01/2021 Procedure Pass [address] [place] [address] Social History Tobacco Use Types Packs/Day Years [...] Description 08/07/2025 2:40 PM EDT Office Visit [facility] [address] [place] [address] 3rd Floor, [address] [place] [address] Buddy Patel MD 22 [facility], [address] [place], [place] [id number] [email or web address] documented as of this encounter Visit Diagnoses Not on filedocumented in this encounter Care Teams Rotoformer Backtender Relationship Specialty Start Date End Date Reanna Goldsmith MD [email or web address] PCP - General Family Medicine 08/05/21 Saad Brewster MD [email or web address] Historical LMR Provider 01/02/17 documented as of this encounter Additional Source Comments The information contained in this document represents components of the legal health record. It is not the complete legal health record.[facility]
--- OUTSIDE RECORDS SUMMARY | 2025-02-04 01:28 | XMS_ITS | Encounter Summary ---
Author Organization [facility] Address [address] [place] [address] Phone Care Team Providers Care Front Man Name Role Phone Carri Knight MD Unavailable [phone] Saad Brewster MD Unavailable [email or web address] Regino Stringer MD Unavailable [phone] Regino Stringer MD Primary Care Provider + [phone] Erma Flores Primary Care Provider [phone] Regino Stringer MD Primary Care Provider + [phone] Reanna Goldsmith MD Primary Care Provider [phone] Encounter Details Date Type Department Care Team (Late st Contact Info) Description 11/19/2020 Procedure Pass [address] [place] [address] Social History Tobacco Use Types Packs/Day Years [...] Description 08/07/2025 2:40 PM EDT Office Visit [facility] [address] [place] [address] 3rd Floor, [address] [place] [address] Buddy Patel MD 22 [facility], [address] [address] [email or web address] documented as of this encounter Visit Diagnoses Not on filedocumented in this encounter Care Teams Front Man Relationship Specialty Start Date End Date Regino Stringer MD [address] [place] [address] PCP - General Internal Medicine 06/03/19 11/19/20 Erma Flores PA [address] [place] [address] PCP - General Unknown Provider Specialty 11/20/20 04/18/21 Regino Stringer MD [address] [place] [address] PCP - General Internal Medicine 04/19/21 08/04/21 Reanna Goldsmith MD [address] [place] [address] PCP - General Family Medicine 08/05/21 Carri Knight MD [address] [place] [address] Historical LMR Provider 01/02/17 2 Saad Brewster MD [email or web address] Historical LMR Provider 01/02/17 Regino Stringer MD [address] [place] [address] [email or web address] Historical LMR Provider 01/02/17 2 documented as of this encounter Additional Source Comments The information contained in this document represents components of the legal health record. It is not the complete legal health record.[facility]
--- OUTSIDE RECORDS SUMMARY | 2025-02-04 01:29 | XMS_ITS | Encounter Summary ---
Author Organization [facility] Address [address] [facility] [address] [place] [address] Phone Care Team Providers Care Big Data Platform Architect Name Role Phone Carri Knight MD Unavailable [phone] Saad Brewster MD Unavailable [email or web address] Regino Stringer MD Unavailable [phone] Johanna Ferrer Primary Care Provider Regino Stringer MD Primary Care Provider + [phone] Erma Flores Primary Care Provider [phone] Regino Stringer MD Primary Care Provider + [phone] Erma Flores Primary Care Provider [phone] Regino Stringer MD Primary Care Provider + [phone] Reanna Glodsmith MD Primary Care Provider [phone] Encounter Details Date Type Department Care Team (Latest Contact Info) Description 07/13/2017 Transcribe Orders [facility] Phleb Emily [address] 2nd [place] [address] Hakeem Ortiz MD [address] [address] Elevated LFTs (Primary Dx) Social History Tobacco Use Types [...] Description 08/07/2025 2:40 PM EDT Office Visit [facility] [address] [place] [address] 3rd Floor, [address] [place], [place] [phone] Buddy Patel MD 22 [facility], [address] [place] [address] [email or web address] documented as of this encounter Results * LFTs (hepatic panel) (07/13/2017 2:26 PM EDT) ALKALINE PHOSPHATASE 59 39 - 117 U/L [facility] TOTAL BILIRUBIN 0.5 0.0 - 1.2 mg/dL [facility] DIRECT BILIRUBIN <0.2 0 - 0.3 mg/dL [facility] Bilirubin (Indirect) NOT CALCULATED 0 - 1.5 mg/dL [facility] AST 17 0 - 37 U/L [facility] ALT 10 0 - 40 U/L [facility] TOTAL PROTEIN 6.5 6.5 - 8.0 g/dL [facility] ALBUMIN 4.1 3.9 - 4.8 g/dL [facility] GLOBULIN 2.4 1 - 4.8 g/dL [facility] A/G Ratio 1.71 1.00 - 4.80 RATIO [facility] Blood 07/13/2017 2:26 PM EDT 07/13/2017 2:28 PM EDT us Hakeem Ortiz MD LAB BLOOD BKR ORDERABLES Final Result Performing Organization Address City/State/[facility] Co de Phone Number [facility] [address] [place] [address] documented in this encounter Visit Diagnoses Diagnosis Elevated LFTs- Primary Other abnormal blood chemistry documented in this encounter Care Teams Big Data Platform Architect Relationship Specialty Start Date End Date Johanna Ferrer PA [address] [place] [address] PCP - General Unknown Provider Specialty 02/13/17 07/23/17 Regino Stringer MD [address] [place] [address] [email or web address] PCP - General Internal Medicine 07/24/17 10/03/18 Erma Flores PA [address] [place] [address] PCP - General Unknown Provider Specialty 10/04/18 06/02/19 Regino Stringer MD [address] [place] [address] PCP - General Internal Medicine 06/03/19 11/19/20 Erma Flores PA [address] [place] [address] PCP - General Unknown Provider Specialty 11/20/20 04/18/21 Regino Stringer MD [address] [place] [address] [email or web address] PCP - General Internal Medicine 04/19/21 08/04/21 Reanna Goldsmith MD [address] [place] [address] [email or web address] PCP - General Family Medicine 08/05/21 Carri Knight MD [address] [place] [address] Historical LMR Provider 01/02/17 2 Saad Brewster MD [email or web address] Historical LMR Provider 01/02/17 Regino Stringer MD [address] [place] [address] [email or web address] Historical LMR Provider 01/02/17 2 documented as of this encounter Additional Source Comments The information contained in this document represents components of the legal health record. It is not the complete legal health record.[facility]
--- OUTSIDE RECORDS SUMMARY | 2025-02-04 01:30 | XMS_ITS | Encounter Summary ---
Author Organization [facility] Address [address] [place] [address] Phone Care Team Providers Care Avionics Systems Technician Name Role Phone Carri Knight MD Unavailable [phone] Saad Brewster MD Unavailable [email or web address] Regino Stringer MD Unavailable [phone] Regino Stringer MD Primary Care Provider + [phone] Erma Flores Primary Care Provider [phone] Regino Stringer MD Primary Care Provider + [phone] Erma Flores Primary Care Provider [phone] Regino Stringer MD Primary Care Provider + [phone] Reanna Goldsmith MD Primary Care Provider [phone] Reason for Referral * MRI/CAT Scan - Closed Specialty Diagnoses / Procedures Referred By Delvis shane Referred To Contact Radiology Diagnoses Solitary lung nodule Procedures CT Chest Erma Flores PA Phone: tel: fax: Referral ID Status Reason Start Date Expiration Date Visits Re quested Visits Authorized [id number] Closed 09/12/2018 11/10/2018 1 1 Encounter Details Date Type Department Care Team (Latest Contact Info) Description 09/14/2018 Transcribe Orders Virtual Department [address] [place] [address] Erma Flores PA [address] [address] Solitary lung nodule (Primary Dx) Social History Tobacco Use [...] Description 08/07/2025 2:40 PM EDT Office Visit [facility] [address] [place] [address] 3rd Floor, [address] [place] [address] Buddy Patel MD 22 [facility], [address] [place] [address] [email or web address] documented as of this encounter Results * CT CHEST WITH CONTRAST (09/25/2018 10:55 AM EDT) Anatomical Region Laterality Modality Chest Computed Tomogra phy 09/25/2018 11:1 4 AM EDT Impressions 09/25/2018 12:06 PM EDT Multiple pulmonary nodules, largest measuring just over 6 mm in the left lower lobe. Unenhanced CT follow-up is recommended per the Fleischner Society guidelines. As only one of the nodules is over 6 mm, it is difficult to determine whether the criteria used should be multiple pulmonary nodules or solitary, but as a compromise, 6 month study is suggested. TOTAL CTDIvol: 5.3 mGy POS - [id number] Edited by: Rica Green on 09/25/2018 11:36 AM Narrative 09/25/2018 12:06 PM EDT HISTORY: Pulmonary nodule COMPARISON: CT abdomen June 20. TECHNIQUE: After the administration of intravenous contrast, computed tomography is obtained from lung apex to base. Sagittal and coronal reformats generated. Automated exposure control utilized. FINDINGS: Lungs and pleura: Previously noted left lower lobe nodule again seen measuring slightly over 6 mm in average transaxial diameter. Another nodule is seen between pulmonary arterial branch and the distal bronchus in the left upper lobe measuring 4 x 5 mm. Multiple other sub-6 mm pleural parenchymal densities are seen towards lung base and elsewhere on the left. On the right a sub-6 mm diameter pleural-based nodule in the upper lobe and another in the apical segment noted. All these are very likely postinflammatory. As the lower lobe nodule measures slightly over 6 mm, follow- up is recommended per the Fleischner Society guidelines with a follow-up CT in 6 months suggested. This could be considered either a solitary nodule with pleural thickening or multiple pulmonary nodules, one greater than 6 mm. As the largest nodule is well-circumscribed and only borderline in size, 6 months would seem a reasonable follow-up interval with unenhanced CT. Minor subsegmental atelectatic changes in the lingula. No pleural fluid. No central airway lesion. Nodes: No adenopathy is detected. Cardiovascular: What is presumably reflux into a superior vein over the aortic arch incidentally noted. Small amounts of calcific coronary artery atheroma in the left system. Heart not enlarged. No pericardial effusion. No worrisome aortic dilatation. Limited pulmonary arterial opacification but no central emboli suggested. Soft tissue and mediastinum: Status post thyroidectomy. No masses of concern. Upper abdomen: See recent CT abdomen report. 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 Bones: Degenerative change and scoliosis in the spine. No compression deformity or bony destructive lesion identified. Fasteners from prior rotator cuff surgery right humerus. Mild right glenohumeral osteoarthritic change. Procedure Note Inés Tomlinson MD - 09/25/2018 HISTORY: Pulmonary nodule COMPARISON: CT abdomen June 20. TECHNIQUE: After the administration of intravenous contrast, computedtomography is obtained from lung apex to base. Sagittal and coronalreformats generated. Automated exposure control utilized. FINDINGS: Lungs and pleura: Previously noted left lower lobe nodule again seenmeasuring slightly over 6 mm in average transaxial diameter. Anothernodule is seen between pulmonary arterial branch and the distal bronchusin the left upper lobe measuring 4 x 5 mm. Multiple other sub-6 mm pleuralparenchymal densities are seen towards lung base and elsewhere on theleft. On the right a sub-6 mm diameter pleural-based nodule in the upperlobe and another in the apical segment noted. All these are very likelypostinflammatory. As the lower lobe nodule measures slightly over 6 mm,follow-up is recommended per the Fleischner Society guidelines with afollow- up CT in 6 months suggested. This could be considered either asolitary nodule with pleural thickening or multiple pulmonary nodules, onegreater than 6 mm. As the largest nodule is well-circumscribed and onlyborderline in size, 6 months would seem a reasonable follow-up intervalwith unenhanced CT. Minor subsegmental atelectatic changes in the lingula.No pleural fluid. No central airway lesion. Nodes: No adenopathy is detected. Cardiovascular: What is presumably reflux into a superior vein over theaortic arch incidentally noted. Small amounts of calcific coronary arteryatheroma in the left system. Heart not enlarged. No pericardial effusion.No worrisome aortic dilatation. Limited pulmonary arterial opacificationbut no central emboli suggested. Soft tissue and mediastinum: Status post thyroidectomy. No masses ofconcern. Upper abdomen: See recent CT abdomen report. Multiple hemangiomataincluding giant hemangioma in the right hepatic lobe again noted. Bones: Degenerative change and scoliosis in the spine. No compressiondeformity or bony destructive lesion identified. Fasteners from priorrotator cuff surgery right humerus. Mild right glenohumeral osteoarthriticchange. IMPRESSION: Multiple pulmonary nodules, largest measuring just over 6 mm in the leftlower lobe. Unenhanced CT follow-up is recommended per the FleischnerSh[facility]ety guidelines. As only one of the nodules is over 6 mm, it isdifficult to determine whether the criteria used should be multiplepulmonary nodules or solitary, but as a compromise, 6 month study issuggested. TOTAL CTDIvol: 5.3 mGy POS - [id number] Edited by: Rica Green on 09/25/2018 11:36 AM Erma SALEEM IMG CT CHEST Final Resul t documented in this encounter Visit Diagnoses Diagnosis Solitary lung nodule- Primary Other diseases of lung, not elsewhere classified Solitary lung nodule Other diseases of lung, not elsewhere classified documented in this encounter Care Teams Avionics Systems Technician Relationship Specialty Start Date End Date Regino Stringer MD [address] [place] [address] PCP - General Internal Medicine 07/24/17 10/03/18 Erma Flores PA [address] [place] [address] PCP - General Unknown Provider Specialty 10/04/18 06/02/19 Regino Stringer MD [address] [place] [address] PCP - General Internal Medicine 06/03/19 11/19/20 Erma Flores PA [address] [place] [address] PCP - General Unknown Provider Specialty 11/20/20 04/18/21 Regino Stringer MD [address] [place] [address] PCP - General Internal Medicine 04/19/21 08/04/21 Reanna Goldsmith MD [address] [place] [address] [email or web address] PCP - General Family Medicine 08/05/21 Carri Knight MD [address] [place] [address] Historical LMR Provider 01/02/17 2 aSad Brewster MD [email or web address] Historical LMR Provider 01/02/17 Regino Stringer MD [address] [place] [address] [email or web address] Historical LMR Provider 01/02/17 2 documented as of this encounter Additional Source Comments The information contained in this document represents components of the legal health record. It is not the complete legal health record.[facility]
--- OUTSIDE RECORDS SUMMARY | 2025-02-04 01:30 | XMS_ITS | Encounter Summary ---
Author Organization [facility] Address [address] [facility] [address] [place] [address] Phone Care Team Providers Care Metal Alloy Scientist Name Role Phone Saad Brewster MD Unavailable [email or web address] Reanna Goldsmith MD Primary Care Provider [phone] Encounter Details Date Type Department Care Team (Late st Contact Info) Description 12/25/2024 Telephone [facility] Rheumatology [address] [place] [address] Grace Barajas MD, MPH [address] [facility], [address] [place] [address] [email or web address] Social History Tobacco Use Types Packs/Day Years [...] PM EDT documented as of this encounter Progress Notes * Neha Antunez CMA - 12/25/2024 2:22 PM EDT CMP from [facility] * Grace Barajas MD, MPH - 12/25/2024 1:58 PM EDT Pls track down any recent labs from [facility] - BMP or CMP ty documented in this encounter Plan of Treatment Upcoming Encounters Date Type Department Care Team (Late st Contact Info) Description 08/07/2025 2:40 PM EDT Office Visit [facility] [address] [place] [address] [address] [facility], [address] [place] [address] Buddy Patel MD [address] [place] [address], [address] [address] [email or web address] documented as of this encounter Visit Diagnoses Not on filedocumented in this encounter Care Teams Metal Alloy Scientist Relationship Specialty Start Date End Date Reanna Goldsmith MD [email or web address] PCP - General Family Medicine 08/05/21 Saad Brewster MD [email or web address] Historical LMR Provider 01/02/17 documented as of this encounter Additional Source Comments The information contained in this document represents components of the legal health record. It is not the complete legal health record.[facility]
--- OUTSIDE RECORDS SUMMARY | 2025-02-04 01:31 | XMS_ITS | Encounter Summary ---
Author Organization [facility] Address [address] [place] [address] Phone Care Team Providers Care Chief Scientific Officer Name Role Phone Carri Knight MD Unavailable [phone] Saad Brewster MD Unavailable [email or web address] Regino Stringer MD Unavailable [phone] Regino Stringer MD Primary Care Provider + [phone] Erma Flores Primary Care Provider [phone] Regino Stringer MD Primary Care Provider + [phone] Erma Flores Primary Care Provider [phone] Regino Stringer MD Primary Care Provider + [phone] Reanna Goldsmith MD Primary Care Provider [phone] Reason for Referral * Physical Therapy (Routine) - Closed Specialty Diagnoses / Procedures Referred By Delvis shane Referred To Contact Physical Therapy Diagnoses Encounter for rehabilitation Chronic Back Pain Procedures Evaluate & Treat System, Provider Not In, PhD [id number] [place] [address] Phone: tel: Referral ID Status Reason Start Date Expiration Date Visits Re quested Visits Authorized [id number] Closed 09/05/2018 06/22/2019 8 8 Encounter Details Date Type Department Care Team (Latest Contact Info) Description 09/05/2018 Transcribe Orders [facility] [address] [place] [address] Erma Flores PA [address] [address] Encounter for rehabilitation (Primary Dx) Social History Tobacco Use Types [...] Description 08/07/2025 2:40 PM EDT Office Visit [facility] [address] [place] [address] [address] Floor, [address] [place] [phone] Buddy Patel MD [address] [facility], [address] [address] [email or web address] Scheduled Referrals Name Type Priority Associated Diagnoses Orde r Schedule Ambulatory referral to [facility] Physical Therapy Outpatient Referral Routine Encounter for rehabilitation Ordered: 09/05/2018 documented as of this encounter Visit Diagnoses Diagnosis Encounter for rehabilitation- Primary documented in this encounter Care Teams Chief Scientific Officer Relationship Specialty Start Date End Date Regino Stringer MD [address] [place] [id number] PCP - General Internal Medicine 07/24/17 10/03/18 Erma Flores PA [address] [address] PCP - General Unknown Provider Specialty 10/04/18 06/02/19 Regino Stringer MD [address] [place] [phone] [email or web address] PCP - General Internal Medicine 06/03/19 11/19/20 Erma Flores PA [address] [address] PCP - General Unknown Provider Specialty 11/20/20 04/18/21 Regino Stringer MD [address] [place] [phone] [email or web address] PCP - General Internal Medicine 04/19/21 08/04/21 Reanna Goldsmith MD [address] [place] [address] [email or web address] PCP - General Family Medicine 08/05/21 Carri Knight MD [address] [place] [address] Historical LMR Provider 01/02/17 2 Saad Brewster MD [email or web address] Historical LMR Provider 01/02/17 Regino Stringer MD [address] [place] [address] [email or web address] Historical LMR Provider 01/02/17 2 documented as of this encounter Additional Source Comments The information contained in this document represents components of the legal health record. It is not the complete legal health record.[facility]
--- OUTSIDE RECORDS SUMMARY | 2025-02-04 01:32 | XMS_ITS | Clinical Summary ---
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 increase to 50 mg q hs which she will try Ok to continue flexeril 5 mg q hs prn Encouraged regular exercise program Assessment & Plan (06/17/2020 9:29 AM EDT): I refilled the Lyrica at 25 mg at night. This does help nighttime pain. Assessment & Plan (12/24/2018 12:42 PM EDT): Active but stable and doing fairly well on 25 mg of Lyrica at bedtime, PRN use of ibuprofen and acetaminophen and attempts at low inflammatory Mediterranean style diet and cardiovascular training. Assessment & Plan (08/01/2018 4:29 PM EDT): Multiple tender points are again elicited on exam. I believe that in addition to the orthopedic issues that I discussed she does have an overlay of fibromyalgia. We talked about this today. We talked about the need for a low inflammatory Mediterranean style diet, continuance of 25 mg of Lyrica at bedtime, stress reduction with meditation if possible and it is good that she is having a reduced work schedule. Assessment & Plan (01/29/2018 5:45 PM EST): Believe the patient suffers from both fibromyalgia as well as benign hypermobility disorder. We talked about this today as well as joint protective measures. Well fitting supportive shoes with good shock absorption, weight control as well as muscular strengthening and a noninvasive low impact way. Assessment & Plan (08/29/2017 1:50 PM EDT): She still has some fatigue though with her weight loss and improvement in cardiovascular condition is much better and I believe that her fibromyalgia has improved. Low dose of Lyrica at 25 mg before bedtime has been quite helpful in reducing nighttime pain and helping her sleep. I would like her to stay on this. Assessment & Plan (04/17/2017 1:46 PM EST): Morning stiffness worsening sleep, generalized myalgias and arthralgias are all compatible with active and flaring fibromyalgia syndrome. I am increasing her Lyrica from 25 mg at bedtime to 50 mg at bedtime. Follow-up phone call her OB in 2 weeks. I'm checking a vitamin D level today to see if her daily dose is maintaining a therapeutic level. We discussed Lyrica risks and benefits. Other medications will remain unchanged. Palpitations 04/11/2017 Assessment & Plan (08/07/2024 1:18 PM EDT): Symptoms are present but stable, she is not on any medication for this. Sometimes exacerbated by albuterol, also exacerbated when she recently got a steroid injection. Overall at baseline at this time. No PVCs or PACs demonstrated on EKG today. Assessment & Plan (02/16/2022 2:07 PM EST): Patient saw her heart rate jump on the phone while she was exercising from 75 to over 170 she is very concerned at this point I could not confirm her phone rhythm so we will go ahead and do an ETT and a Holter monitor she is concerned about her arrhythmias she has history of PACs PVC. Assessment & Plan (01/27/2021 12:08 PM EST): Patient reports that her palpitations have essentially resolved since she has cleaned up her diet with the help of a bread baker. She tells me that Dr Davis once told her that once her gut is healed her heart will follow , and she feels that this is exactly what happened. Assessment & Plan (07/02/2020 3:28 PM EDT): She takes diltiazem 60 mg as needed for palpitations for PACs and PVCs. I discussed that she can continue taking this as needed and that if she has consistent palpitations, we could always consider changing her to a long-acting form diltiazem Assessment & Plan (04/11/2019 1:19 PM EST): Palpitations are likely due to PACs and PVCs and short runs of A. tach. Her symptoms have significantly come down with some lifestyle changes. She is on once a day dosing of diltiazem which she will move it at night. She takes half a milligram which is 30 mg q. nightly. She will try to wean it off and see how she does. Assessment & Plan (10/04/2018 12:20 PM EDT): Palpitations are likely due to PACs and PVCs and short runs of A. tach. Her symptoms have significantly come down with some lifestyle changes. We talked about reducing the medications. She is currently on 180 of Cardizem CD. She also has short acting 60 mg tablets at home for as-needed basis. We talked that she would stop the long- acting 1 and switch to twice a day 60 mg short acting. If she tolerates that well then may be she can get off 1 of the doses and leave it only once a day to see me next time if she tolerates the weaning well then we will be able to probably get her off the diltiazem completely. Assessment & Plan (06/29/2018 12:40 PM EDT): Very pleasant 62-year-old female with symptoms of palpitation which are associated with PACs PVCs and short runs of A. tach. At this time based on the Holter monitor her burden is actually quite low. I am not sure if this really needed to be treated aggressively. She is currently on diltiazem 180. I will give her short acting doses of 60 mg to be taken on a as needed basis up to 3 times a day depending on what her symptoms are. We also talked about diet hydration and the exercise on a daily basis. I did tell this in detail that her arrhythmia burden is quite low and ablation is not warranted or would be effective. Symptom control is what we need to achieve at this point. Assessment & Plan (06/20/2017 7:50 PM EDT): She reports these are somewhat improved on Cardizem and without associated cardiorespiratory symptoms. She had several questions regarding the cause of her palpitations, all questions were answered to her satisfaction and reassured her that PACs and PVCs are common, but difficult to predict PSVT so recommend med mgmt to reduce symptoms and risk for sustained event. --Cont Cardizem CD 120 mg daily --Recommend stress reduction and anxiety mgmt --Cont to limit caffeine and etoh intake --Will continue to monitor clinically --Advised she could push out f/u 6 months or keep if she has additional questions or concerns. Paroxysmal supraventricular tachycardia 04/11/19 18 Assessment & Plan (08/07/2024 1:18 PM EDT): No symptomatic recurrence of this Previously intolerant to beta-blockers and she is on no AV daljit blockade. Will continue to monitor for symptoms Assessment & Plan (06/20/2017 7:52 PM EDT): Non-sustained, nothing > 10 beats on holter. Clinically stable, no chest pain, SOB, or syncope. Failed Metoprolol 50 mg BID due to fatigue, EVANS, and asthma exacerbation. --Rec continued medical mgmt with Cardizem --Avoid triggers listed above --Call office for sooner appt if sustained tachycardia or associated symptoms Dizziness and giddiness 04/11/2017 Hypothyroidism 05/27/2013 Overview (10/19/2022): s/p thyroidectomy for tx of ca; follows with [facility] endocrine Assessment & Plan (04/17/2017 1:47 PM EST): Recent TSH has been checked and I will check it again now. We will review an collision repairer for her to see in consultation. Resolved Problems Problem Noted Date Diagnosed Date Resolved Date Hypertension 12/24/2018 08/05/2021 Assessment & Plan (01/27/2021 12:07 PM EST): BP fairly well controlled in office today. Patient will begin to monitor weekly readings at home and will bring data to next follow up visit (6 months). No medication changes at this time. Post-traumatic osteoarthritis of both knees 04/17/2017 08/29/2017 Encounters Date Type Department Care Team Description 12/25/2024 1:40 PM EDT Telemedicine [facility] Rheumatology [address] [place] [address] Grace Barajas MD, MPH Benign hypermobility syndrome (Primary Dx) 12/25/2024 Orders Only [facility] Rheumatology [address] [place] [address] Provider, MD Maricruz 12/25/2024 Telephone [facility]ology [address] [place] [address] Grace Barajas MD, MPH 11/09/2024 Refill [facility] [address] [place] [address] [place] [address] Grace Barajas MD, MPH Medication Refill from Last 3 Months Immunizations Immunization Administration Dates Next Due COVID-19 (Pre-01/09) Pfizer Vaccine, mRNA, PF 07/19/2021,06/07/2020 INFLUENZA, SPLIT VIRUS, TRIVALENT PF 01/29/2014, 01/16/2013 INFLUENZA, SPLIT VIRUS, TRIV ALENT W/ PRESERVATIVE IM 12/05/2011,12/17/2010,11/27/2009,12/10 Influenza High-Dose Quadriva lent Preservative Free IM 01/07/2022,01/02/2021,12/26/2019 Influenza Quadrivalent Prese rvative Free IM 12/17/2018,12/11/2017,01/06/2017,01/06,01/27/2015 Influenza, Unspecified Formulation 12/27,01/04/2007,03/07/2006,01/17,01/08/2004,01/22/2003,03/07/2001 MMR 09/18/2014 Novel [id number], Injectable 03/12/2009 Pneumococcal conjugate PCV13 12/17/2018 Pneumococcal polysaccharide PPSV23 12/24/2019,,06/29/1998 Td, unspecified formulation 03/20/2006, 7 Tdap 05/22/2021,01/05/2012,07/18/2006 Zoster live 04/18/2014 Zoster recombinant 03/30/2021,10/22/2020 Family History Medical History Relation Comments Heart disease Father Leaky valve Heart disease Mother quad bypass, HTN Heart attack Paternal Grandfather Relation Status Comments Father Mother Paternal Grandfather Social History Tobacco Use Types Packs/Day Years Used Date Smoking Tobacco: Former Smokeless Tobacco: Never Tobacco Cessation:Counseling Given: Not Answered Comments:high school Alcohol Use Standard Drinks/Week Comments [...] Orientation Straight 06/14/2020 2: 15 PM EDT Last Filed Vital Signs Vital Sign Reading Time Taken Comments Blood Pressure 142/86 08/07/2024 12:42 PM EDT Pulse 77 08/07/2024 12:42 PM EDT Temperature 36.4 C (97.6 F) 04/03/2023 6:18 PM EST Respiratory Rate 16 04/03/2023 6:18 PM EST Oxygen Saturation 96% 08/07/2024 12:42 PM EDT Inhaled Oxygen Concentration - - Weight 74.4 kg (164 lb) 12/25/2024 1:19 PM EDT Height 152.4 cm (5') 10/04/2024 10:49 AM EDT Body Mass Index 32.03 10/04/2024 10:49 AM EDT Plan of Treatment Upcoming Encounters Date Type Department Care Team (Late st Contact Info) Description 08/07/2025 2:40 PM EDT Office Visit [facility] [address] [place] [address] [address] Floor, [address] [place] [address] Buddy Patel MD [address] [facility], [address] [place], [place] [id number] [email or web address] Health Maintenance Due Date Last Done Comments LIPID PANEL 1953 DEPRESSION SCREENING 1965 SMOKING Hx and SMOKELESS TOBACCO SCREENING 1966 COLOGUARD 1998 FIT TEST 1998 FOBT 1998 SIGMOIDOSCOPY 1998 VIRTUAL COLONOSCOPY 1998 MAMMOGRAM 07/18/2009 07/19/2007, 07/05/2006 TSH LEVEL 05/11/2018 05/11/2017 INFLUENZA VACCINE (#1) 2024 , 01/20/2023, 01/04/2023, Additional history exists COVID-19 VACCINE ( season) 2024 07/13/2024, 11/21/2023, 06/08/2023, Additional history exists COLONOSCOPY 05/29/2027 05/27/2024, 01/19/2018 COLORECTAL CANCER SCREENING 05/29/2027 Adult Td,Tdap Booster 05/23/2031 05/22/2021 , 01/05/2012, 07/18/2006, Additional history exists HEPATITIS C SCREENING Completed 09/05/2011 OSTEOPOROSIS SCREENING INITIAL (ONE-TIME) Completed 12/05/2018 PNEUMOCOCCAL VACCINES (50+ years) Completed 12/24/2019, 12/17/2018, 05/21/2013, Additional history exists ZOSTER VACCINES Completed 03/30/2021, 0807/2020, 04/18/2014 RSV VACCINE Completed 02/07/2023 HEPATITIS A VACCINES Aged Out No long er eligible based on patient's age to complete this topic HIB VACCINES Aged Out No longer eligi ble based on patient's age to complete this topic IPV VACCINES Aged Out No longer eligi ble based on patient's age to complete this topic MENINGOCOCCAL VACCINES (ACWY) Aged Out No longer eligible based on patient's age to complete this topic MENINGOCOCCAL VACCINES (B) Aged Out N o longer eligible based on patient's age to complete this topic Medical Devices Not on file Procedures Procedure Name Priority Date/Time Associated Diagnosis Comments HM COLONOSCOPY FOR RESULT ENTRY ONLY Routine 05/27/2024 BD DXA MONITORING Routine 12/05/2018 2:3 0 PM EDT Osteopenia of multiple sites TSH WITH REFLEX Routine 05/11/2017 1:29 PM EST Acquired hypothyroidism HISTORICAL LAB Routine 09/05/2011 10:55 AM EDT from Last 3 Months or Most Recently Relevant to Health Maintenance Results * COLONOSCOPY FOR RESULT ENTRY ONLY (05/27/2024) Pathologist [facility] Colonoscopy External Historical Provider HEALTH MAINTENANCE Final Result * DXA Monitoring (12/05/2018 2:30 PM EDT) Anatomical Region Laterality Modality Bone Density Bone Density Saad Brewster MD IMG BD BONE DENSITY DEXA F inal Result * TSH with reflex (05/11/2017 1:29 PM EST) [facility] TSH 1.12 0.27 - 4.20 uIU/mL [facility] Blood 05/11/2017 1:29 PM EST 05/11/2017 1:[address] [facility] Johanna Ferrer [facility] LAB BLOOD BKR ORDERABL ES Final Result [address] [address] * (ABNORMAL) Historical Lab (09/05/2011 10:55 AM EDT) [facility] AFP (non-maternal) 3.4 <6.1 ng/mL [facility] Comment: Note: Reference interval does not apply to newborns where very high levels are expected. Range for newborns is not available. This assay is performed on the Kyle [id number]. Values obtained with different assay methods or kits cannot be used interchangably. The use of AFP as a tumor marker is not recommended in females. Serum levels of AFP, regardless of levels, should not be interpreted as absolute evidence of the presence or absence of disease. AFP is not intended for use as a cancer-screening test. HBV Surface AB,Quant <1.00 mIU/mL [facility] Comment: Note: New normal range Results less than 10.00 mIU/mL are not consistent with protective immunity. Results of 10.00 mIU/mL or more indicate protective immunity. HBV Surface Ab,Qual Negative [facility] HBV SURFACE ANTIGEN Negative [facility] CA 19-9 4 <35 U/mL [facility] Carcinoembryonic Antigen 2.0 <3.4 ng/ml [facility] Plasma Sodium 138 135 - 145 mmol/L [facility] Plasma Potassium 3.8 3.4 - 4.8 mmol/L [facility] Plasma Chloride 101 100 - 108 mmol/L [facility] Plasma Carbon Dioxide 22.9(Abnorm ally L) 23.0 - 31.9 mmol/L [facility] Plasma Urea Nitrogen 11 8 - 25 mg/dl [facility] Plasma Creatinine 0.64 0.60 - 1.50 mg/dl [facility] Plasma Glucose 122(Abnorma lly H) 70 - 110 mg/dl [facility] Albumin 4.6 3.3 - 5.0 g/dl [facility] Total Protein 6.9 6.0 - 8.3 g/dl [facility] Calcium 9.4 8.5 - 10.5 mg/dl [facility] Alkaline Phosphatase 90 30 - 100 U/L [facility] Total Bilirubin 0.5 0.0 - 1.0 mg/dl [facility] Transaminase-SGOT 21 9 - 32 U/L [facility] Transaminase-SGPT 15 7 - 30 U/L [facility] Globulin 2.3 2.3 - 4.1 g/dl [facility] eGFR >60 mL/min/1 .73m2 [facility] Comment: Abnormal if <60 mL/min/1.73m2. If patient is -[place], multiply the result by 1.21. Plasma Anion GAP 14 3 - 15 mmol/L [facility] HCV Antibody Negative [facility] 09/05/2011 10:5 5 AM EDT 09/05/2011 2:55 PM EDT Comment:BLOOD us Viridiana South MD LAB BLOOD ORDERABLES Final Result [facility] [address] [place] [address] from Last 3 Months or Most Recently Relevant to Health Maintenance Insurance [employer] SU[employer] MEDICARE PART A & B [employer] SU[employer] MEDICARE PART A & B [employer] SUPP[employer] MEDICARE PART A & B [employer] SUPP[employer] MEDICARE PART A & B [employer] SU[employer] MEDICARE PART A & B [employer] MEDEX SUPPLEMENT MEDICARE PART A & B [employer] SU[employer] MEDICARE PART A & B Member Subscriber Plan / Payer (Ef fective 2020-Present) Name:Tesha Lewis Member ID:[id number] Relation to Subscriber:Self Name:Tesha Lewis Subscriber ID:[id number] Payer ID:[id number] Group ID:Not on file Type:Medicare Address: [employer] [id number] [employer] SUPPLEMENT MEDICARE PART A & B [employer] SUPPLEMENT Member Subscriber Plan / Payer (Ef fective 2019-Present) Name:Tesha Lewis Relation to Subscriber:Self Name:Tesha Lewis Payer ID:[id number] (NAIC) Type:Indemnity Address: [place] [id number] MEDICARE PART A & B Care Teams Extension Agent Relationship Specialty Start Date End Date Reanna Goldsmith MD [email or web address] PCP - General Family Medicine 08/05/21 Saad Brewster MD [email or web address] Historical LMR Provider 01/02/17 Additional Source Comments The information contained in this document represents components of the legal health record. It is not the complete legal health record.[facility]
--- OUTSIDE RECORDS SUMMARY | 2025-02-04 01:32 | XMS_ITS | Encounter Summary ---
Author Organization [facility] Address [address] [facility] [address] [place] [address] Phone Care Team Providers Care Fitness Floor Attendant Name Role Phone Saad Brewster MD Unavailable [email or web address] Reanna Goldsmith MD Primary Care Provider [phone] Reason for Referral * MRI/CAT Scan - Closed Specialty Diagnoses / Procedures Referred By Delvis shane Referred To Contact Radiology Diagnoses Left knee pain, unspecified chronicity Procedures MRI Knee (Left) Andres Lockwood MD [address] [place] [address] Phone: tel: fax: [email or web address] Referral ID Status Reason Start Date Expiration Date Visits Re quested Visits Authorized [id number] Closed 09/11/2024 09/11/2025 1 1 Encounter Details Date Type Department Care Team (Latest Contact Info) Description 09/11/2024 Transcribe Orders Virtual Department [address] [place] [phone] Andres Lockwood MD [address] [place] [id number] [email or web address] Left knee pain, unspecified chronicity (Primary Dx) Social History Tobacco Use Types [...] Description 08/07/2025 2:40 PM EDT Office Visit [facility] [address] [place] [address] [address]rd Floor, [address] [place] [address] Buddy Patel MD [address] [place] [address], [address] [place] [id number] [email or web address] documented as of this encounter Results * MRI KNEE WITHOUT CONTRAST (LEFT) (10/10/2024 3:43 PM EDT) Anatomical Region Laterality Modality Knee Left Magnetic Resonan ce 10/12/2024 5:43 PM EDT Impressions 10/12/2024 5:48 PM EDT 1. 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 2. Mild degeneration and degenerative tearing of the medial meniscus, as detailed. 3. Small joint effusion. 4. Small Greer's cyst. Narrative 10/12/2024 5:48 PM EDT MRI KNEE WITHOUT CONTRAST (LEFT) Referring clinician's provided indication for this examination in [facility]: Outside Radiology Order; left knee pain HISTORY: Left knee pain. COMPARISONS: None. TECHNIQUE: Multiplanar, multisequence imaging was performed through the left knee, without IV or intra-articular gadolinium. FINDINGS: LIGAMENTS: The anterior and posterior cruciate ligaments are intact. The medial and lateral collateral ligament complexes are unremarkable. The extensor mechanism is intact. MENISCI: Crbqdx-or-oxrmj ratio limits optimal meniscal assessment. There is mild degeneration and likely mild degenerative tearing of the medial meniscus including a small flap tear component from the posterior root, for example series 5, image 18, and mild fraying along the inner free edge within the posterior horn and body. The lateral meniscus is intact. BONE MARROW: Mild peripheral subcortical marrow edema within the medial femoral condyle. Mild multifocal subcortical marrow edema within the patella. No fracture. JOINT/CARTILAGE: Borderline small joint effusion. Limited cartilage assessment due to resolution on this study. There is at least moderate cartilage loss throughout the medial compartment with areas of partial thickness loss and mild subcortical marrow edema. Moderate patellar chondromalacia with mild multifocal subchondral marrow edema at the apex and medial facet. PERIARTICULAR SOFT TISSUES: Small Greer's cyst. Procedure Note Gary Macedo MD - 10/12/2024 MRI KNEE WITHOUT CONTRAST (LEFT) Referring clinician's provided indication for this examination in [facility]:Outside Radiology Order; left knee pain HISTORY: Left knee pain. COMPARISONS: None. TECHNIQUE: Multiplanar, multisequence imaging was performed through theleft knee, without IV or intra-articular gadolinium. FINDINGS: LIGAMENTS: The anterior and posterior cruciate ligaments are intact. Themedial and lateral collateral ligament complexes are unremarkable. Theextensor mechanism is intact. MENISCI: Lyppqc-wi-drqnr ratio limits optimal meniscal assessment. Thereis mild degeneration and likely mild degenerative tearing of the medialmeniscus including a small flap tear component from the posterior root,for example series 5, image 18, and mild fraying along the inner free edgewithin the posterior horn and body. The lateral meniscus is intact. BONE MARROW: Mild peripheral subcortical marrow edema within the medialfemoral condyle. Mild multifocal subcortical marrow edema within thepatella. No fracture. JOINT/CARTILAGE: Borderline small joint effusion. Limited cartilageassessment due to resolution on this study. There is at least moderatecartilage loss throughout the medial compartment with areas of partialthickness loss and mild subcortical marrow edema. Moderate patellarchondromalacia with mild multifocal subchondral marrow edema at the apexand medial facet. PERIARTICULAR SOFT TISSUES: Small Greer's cyst. IMPRESSION: 1. Osteoarthritis with moderate degenerative chondromalacia within themedial compartment and patella and mild multifocal subcortical marrowedema within the peripheral medial femoral condyle and within thepatella. 2. Mild degeneration and degenerative tearing of the medial meniscus, asdetailed. 3. Small joint effusion. 4. Small Greer's cyst. us Andres Lockwood MD IMG MR EXTREMITY Final Resul t documented in this encounter Visit Diagnoses Diagnosis Left knee pain, unspecified chronicity- Primary Left knee pain, unspecified chronicity documented in this encounter Care Teams Fitness Floor Attendant Relationship Specialty Start Date End Date Reanna Goldsmith MD [email or web address] PCP - General Family Medicine 08/05/21 Saad Brewster MD [email or web address] Historical LMR Provider 01/02/17 documented as of this encounter Additional Source Comments The information contained in this document represents components of the legal health record. It is not the complete legal health record.[facility]
--- OUTSIDE RECORDS SUMMARY | 2025-02-04 01:33 | XMS_ITS | Encounter Summary ---
Author Organization [facility] Address [address] [place] [address] Phone Care Team Providers Care Deputy [employer] Name Role Phone Saad Brewster MD Unavailable [email or web address] Reanna Goldsmith MD Primary Care Provider [phone] Encounter Details Date Type Department Care Team (Late st Contact Info) Description 09/11/2024 Procedure Pass [facility], [address] [address] Social History Tobacco Use Types Packs/Day Years [...] Description 08/07/2025 2:40 PM EDT Office Visit [facility] [address] [place] [address] [address], [address] [place] [address] Buddy Patel MD [address] [facility], [address] [place] [address] [email or web address] documented as of this encounter Visit Diagnoses Not on filedocumented in this encounter Care Teams Deputy [employer] Relationship Specialty Start Date End Date Reanna Goldsmith MD [email or web address] PCP - General Family Medicine 08/05/21 Saad Brewster MD [email or web address] Historical LMR Provider 01/02/17 documented as of this encounter Additional Source Comments The information contained in this document represents components of the legal health record. It is not the complete legal health record.[facility]
== END 2025-02-03 11:28 | disposition home or self-care (01) ==
LOC: HO.XRAY 11:27
PROVIDERS: PCP Family Medicine; Visit Provider Nurse Practitioner Family
DX: M51.369 Other intervertebral disc degeneration, lumbar region without mention of lumbar back pain or lower extremity pain (principal); M47.817 Spondylosis without myelopathy or radiculopathy, lumbosacral region; M62.830 Muscle spasm of back; M41.86 Other forms of scoliosis, lumbar region
CPT/HCPCS: 72114; 99202

== ENCOUNTER → 2025-02-03 12:43 | Outpatient (BNV) | payer MEDICARE, SELFPAY | PROVIDERS: PCP Family Medicine; Visit Provider Radiology Diagnostic Radiology | DX: M47.815 Spondylosis without myelopathy or radiculopathy, thoracolumbar region (principal); M41.86 Other forms of scoliosis, lumbar region | CPT/HCPCS: 72114 ==